=== PATIENT | female | born 1945 | race Caucasian/White ===

== ENCOUNTER 2017-09-10 15:00 | Outpatient (RCR) | payer OTHER, MEDICARE, SELFPAY ==
--- NOTE | 2017-08-23 12:45 | HP.PTEVAL_ITS ---
Patient's Visit Information CONOR LIM is a 72 year old F referred to Physical Therapy by Leo KHAN with a diagnosis of L pes anserine bursitis. Date of Evaluation: 08/23/17 Physical Therapist: JESSICA TineoT, OC - Visit Plan Frequency: 2x /Week Duration: 2-4 Weeks Plan: 2x/week for 2-4 weeks...pt on chemo and has pacemaker. STM/ rollout to L hip adductor/quad and HS and stretch same. Strengthening of L knee and hip NWB. - Subjective Subjective: June, after a trip to the [facility], her L knee got huge and swollen and painful. (Is on chemo pill which makes her sensitive to joint pain). Went to [facility] and got cortisone shot and was much better. Then was fine until this past Saturday doctor appointment as she woke up in the middle of night and it was getting worse again. Pain is medial L joint line. Was tender up the adductor also. Was put on prednisone. Legs have always been good and able to walk long way all her life and up to a mile and a half a year ago. Improving on prednisone. Is on chemo pill after lumpectomy. CA supposedly gone. Sleep is OK now but was keeping her up earlier in the week. Not employed. Does most activties but they hurt. WB is worse. Lifting leg over tub is worse. Many steps at home and they are not a problem but were tough when the pain is there. - Pain L medial Pain Intensity (Out of 10): 0 Pain Intensity Range: 0, 9 Comment: pushing on knee distal to medial joint - Objective Walks well today adn transfers without pain. Adductors adn HS mod tight B. Knee aROM WFL and symmetrical without pain B. strength in hips 3+, knees 4- ext adn flexion without pain today., ankles 4/5. refelxes 2/3 patella and achilles. sensation LE WNL to gross light touch. - knee scour. - patellar grind. -bounce home. - varus and valgus. Tender over Pes on L knee moderately. - Goals Goal 1:: L knee pain gone for 2 weeks Goal Time Frame: 2-4 Weeks Goal 2:: I approp HEP to minimize likelihood of future problems Goal Time Frame: 2-4 Weeks Goal 3:: Pt feel 99% improved and back to normal activities. Goal Time Frame: 2-4 Weeks - Rehabilitation Potential Physical Therapy Diagnosis: L pes anserine bursitis. Rehabilitation Potential: Fair - Anticipated Interventions Patient/Client Instruction: Educate patient on: Condition For the Purpose of:: To decrease pain, To improve nutrient delivery to tissue, To improve ability of physical actions for home/community/work/leisure Therapeutic Exercise to Include: Strength training, Flexibilty training For the Purpose of:: To decrease pain, To improve nutrient delivery to tissue Manual Therapy Techniques to Include: Soft tissue mobilization For the Purpose of:: To decrease pain, To improve muscle performance and motor function Cryotherapy (ice pack, ice massage): Yes For the Purpose of:: To decrease pain Thank you for the opportunity to evaluate your patient. For Medicare and Medicare HMO plans, please review the plan of care and approve it. It will need to be FAXED BACK to us at [phone] for Medicare purposes. Please let me know if there are questions or concerns regarding this plan of care. Physician Signature: Date:
--- NOTE | 2017-11-28 16:14 | HP.PT.NRP ---
HP - Discharge Summary (1) - Patient Information CONOR LIM was seen in my office for initial evaluation on 08/23/17. The following Plan of Care was established for this patient: Initial Frequency: 2x /Week Initial Duration: 2-4 Weeks - Anticipated Interventions Patient/Client Instruction: Educate patient on: Condition For the Purpose of:: To decrease pain, To improve nutrient delivery to tissue, To improve ability of physical actions for home/community/work/leisure Therapeutic Exercise to Include: Strength training, Flexibilty training For the Purpose of:: To decrease pain, To improve nutrient delivery to tissue Manual Therapy Techniques to Include: Soft tissue mobilization For the Purpose of:: To decrease pain, To improve muscle performance and motor function Cryotherapy (ice pack, ice massage): Yes For the Purpose of:: To decrease pain This patient was last seen in our office 09/10/17. Pertinent comments regarding their Physical therapy will appear below: Pt seen 4 visits of plan of care and cancelled the rest as she was having US of gall bladder. At this point, it has been over two months and I will discontinue due to nonattendance. At this point I will be discontinuing this patient from physical therapy. I would be happy to see this patient again in the future if found appropriate by the physician. Thank you! Reuben Giles, DPT, OC
== END 2017-09-10 19:00 | disposition home or self-care (01) ==
LOC: PT 15:00
PROVIDERS: Family Provider Family Medicine; PCP Family Medicine; Visit Provider Family Medicine
DX: M75.02 Adhesive capsulitis of left shoulder (principal)
CPT/HCPCS: 97110; 97162

== ENCOUNTER → 2017-09-12 12:00 | Outpatient (CLI) | payer OTHER, MEDICARE, SELFPAY ==
[2017-09-12 12:42] LABS: Absolute Lymphocyte Count 2.45 X10^3/ul (0.83-4.51); Absolute Neutrophil Count 5.2 X10^3/uL (2.0-7.7); Basophil# 0.02 X10^3/uL; Basophil% 0.2 % (0-1); Eosinophil# 0.15 X10^3/uL; Eosinophils% 1.7 % (0-5); Hematocrit 38.1 % (37-47); Hemoglobin 12.1 g/dl (12.0-15.0); Lymphocyte # 2.45 X10^3/ul (4.0); Lymphocyte % 28.5 % (19-41); Mean Corp Hgb Conc 31.8 g/gl (32-36); Mean Corpuscular Volume 91.4 fL (81-99); Mean Platelet Vol. 9.4 fl (6.2-12.0); Monocyte# 0.76 X10^3/uL; Monocyte% 8.8 % (0-10); Neutrophil % 60.5 % (47-70); Platelet Count 294 K/mm3 (150-450); RBC Distribution Width CV 14.7 % (11.6-14.6); RBC Distribution Width SD 48.9 fl (35.1-43.9); Red Blood Count 4.17 M/mm3 (4.2-5.4); White Blood Count 8.6 K/mm3 (4.4-11.0)
[2017-09-12 12:44] LABS: POSITIVE COUNT NO; POSITIVE DIFFERENTIAL NO; POSITIVE MORPHOLOGY NO
--- NOTE | 2017-09-12 12:59 | US_ITS ---
STUDY: ABDOMINAL ULTRASOUND - RIGHT UPPER QUADRANT REASON FOR VISIT: Female, 72 years old. Right upper quadrant pain. TECHNIQUE: Ultrasound evaluation of the right upper quadrant was performed with real-time and static de leon-scale imaging. TECHNICAL QUALITY: Adequate. COMPARISON: None. FINDINGS: Liver: The liver measures 16.0 cm. There is increased echogenicity consistent with fatty infiltration. The bile ducts are within normal limits. There is hepatic color flow. The direction of portal flow is hepatopetal. There is no demonstrated mass lesion. Gallbladder: Normal distended gallbladder. The gallbladder wall is slightly thickened and measures 3.2 mm. There is a negative sonographic Roberts's sign. There is no pericholecystic fluid. There are multiple echogenic structures within the gallbladder, consistent with multiple gallstones. Common Bile Duct (C.B.D.): The common bile duct measures 6.3 mm. Pancreas: Normal size of the head, body and tail of the pancreas. There is normal echogenicity of the pancreas. There is no demonstrated pancreatic mass or cyst. Right Kidney: Normal size of the right kidney. The right kidney measures 11.1 cm x 5.0 cm x 4.5 cm. Normal renal cortex. The right cortex measures 1.4 cm. There is no demonstrated renal mass or cyst. Fullness of the right renal pelvis. US/Gallbladder IMPRESSION: Multiple gallstones. Mild gallbladder wall thickening. Electronically Signed: Jimy Mueller MD at 13:44 EST Tel [phone], Service support ,
[2017-09-12 13:13] LABS: ALB/GLOB Ratio 1.1 RATIO (0.9-2.4); AST(SGOT) 11 U/L (15-37); Alanine Aminotransfer ALT/SGPT 27 U/L (13-56); Albumin, Serum 3.9 g/dL (3.2-5.0); Alkaline Phosphatase 81 U/L (45-117); Anion Gap 10 (5-15); BUN 12 mg/dL (7-18); BUN/Creat Ratio 16.4 RATIO (10-20); Calcium,Total 9.3 mg/dL (8.5-10.1); Chloride 105 mmol/L (98-107); Creatinine, Serum 0.73 mg/dL (0.55-1.02); EST Glomerular Filtration Rate 83 mL/min (>60); Est Glom Filt Rate - Afr Amer 100 mL/min (>60); Globulin 3.5 g/dL (2.2-4.2); Glucose 72 mg/dL (74-106); Lipase 119 U/L (73-393); Potassium 4.1 mmol/L (3.5-5.1); Protein, Total 7.4 g/dL (6.4-8.2); Sodium Level 142 mmol/L (136-145)
== END ==
PROVIDERS: Family Provider Family Medicine; PCP Family Medicine; Visit Provider Family Medicine
DX: R10.11 Right upper quadrant pain (principal)
CPT/HCPCS: 36415; 76705; 80053; 83690; 85025

== ENCOUNTER 2018-02-20 15:30 | Outpatient (RCR) | payer OTHER, MEDICARE, SELFPAY ==
--- NOTE | 2018-01-21 15:59 | HP.PTEVAL_ITS ---
Patient's Visit Information CONOR LIM is a 72 year old F referred to Physical Therapy by Shen Henriquez with a diagnosis of debility. Date of Evaluation: 01/21/18 Physical Therapist: Elsie Darling - Visit Plan Frequency: 2x /Week Duration: 4 Weeks Plan: 2X/ week for 4-6 weeks to increase general mobility, core strength, LE Strength, UE strength, neck stretches - Subjective Subjective: Pt is on a med that takes all the estrogen out of her system due to breast CA. Had a lumpectomy twice. She has been on it a little over a year and all her joints hurt and all her hair is falling out. She has to physically lift her leg to get out of a car. She has to be on this for 4 more years. She hurts all the time and has to push self to do anything. 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 She reports that she is overweight and more overweight she moved to [place]..... She feels that some of her knee pain is tendon pain and then she got some serious side pain and had to stop. Walking is not too bad.... 2 years ago walk 1.5 miles in 36 min. all the sudden she can't do that...... she feels she needs to move her joints... 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 She is having trouble with pain with sit to stand but no physical trouble doing it. Her hands tingle, Her neck is stiff, her RC is painful ( she has learned to adjust her mobility). She swells from her meds.... No trouble with stairs except for some SOB. - Pain knee pain Pain Intensity (Out of 10): 6 B RC's Pain Intensity (Out of 10): 0 - Objective Gait: walks fast pace without difficulty. able to heel and toe walk without much difficulty. LE MMT:hip flex R 3-/5 and L 3+/5, knee flex and knee ext B 4/ 5, B hip abd 4-/5, able to bridge without difficulty. UE MMT: B ER/ IR 4/5, flexion 4/5 B and abd B 4/5. Neck AROM: Rot B 75%, flexion 100%, ext 50%. Trunk AROM: flexion 50%, ext 75%. Sit to stand without UE assistance....she can swuat down without pain - Goals Goal 1:: I HEP Goal Time Frame: 4-6 Weeks Goal 2:: Increase LE strength by 1/2 muscle grade (At time of eval....LE MMT: hip flex R 3-/5 and L 3+/5, knee flex and knee ext B 4/5, B hip abd 4-/5, able to bridge without difficulty). Goal Time Frame: 4-6 Weeks Goal 3:: Decrease overall joint pain by 50% Goal Time Frame: 4-6 Weeks - Rehabilitation Potential Rehabilitation Potential: Good - Anticipated Interventions Thank you for the opportunity to evaluate your patient. For Medicare and Medicare HMO plans, please review the plan of care and approve it. It will need to be FAXED BACK to us at [phone] for Medicare purposes. Please let me know if there are questions or concerns regarding this plan of care. Physician Signature: Date:
--- NOTE | 2018-04-11 10:16 | HP.PT.NRP ---
HP - Discharge Summary (1) - Patient Information CONOR LIM was seen in my office for initial evaluation on 01/21/18. The following Plan of Care was established for this patient: Initial Frequency: 2x /Week Initial Duration: 4 Weeks This patient was last seen in our office 02/20/18. Pertinent comments regarding their Physical therapy will appear below: DC PT At this point I will be discontinuing this patient from physical therapy. I would be happy to see this patient again in the future if found appropriate by the physician. Thank you! Elsie Darling
== END 2018-02-20 19:00 | disposition home or self-care (01) ==
LOC: PT 15:30
PROVIDERS: Family Provider Family Medicine; PCP Family Medicine; Visit Provider Family Medicine
DX: R53.81 Other malaise (principal)
CPT/HCPCS: 97110; 97162

== ENCOUNTER 2018-03-20 13:57 | Outpatient (RCR) | payer OTHER, MEDICARE, SELFPAY ==
[2018-03-20 15:36] LABS: Prothrombin Time Fingerstick 28.7 SEC (11.9-14.4)
== END 2018-03-20 15:00 | disposition home or self-care (01) ==
LOC: LAB 13:57
PROVIDERS: Family Provider Family Medicine; PCP Family Medicine; Visit Provider Internal Medicine Cardiovascular Disease
DX: I48.1 Persistent atrial fibrillation (principal); Z79.01 Long term (current) use of anticoagulants
CPT/HCPCS: 36416; 85610

== ENCOUNTER 2018-04-25 08:02 | Outpatient (RCR) | payer OTHER, MEDICARE, SELFPAY ==
[2018-04-25 08:21] LABS: Prothrombin Time Fingerstick 28.8 SEC (11.9-14.4)
== END 2018-04-25 09:00 | disposition home or self-care (01) ==
LOC: LAB 08:02
PROVIDERS: Family Provider Family Medicine; PCP Family Medicine; Visit Provider Internal Medicine Cardiovascular Disease
DX: I48.1 Persistent atrial fibrillation (principal); Z79.01 Long term (current) use of anticoagulants
CPT/HCPCS: 36416; 85610

== ENCOUNTER → 2018-10-01 10:08 | Outpatient (CLI) | payer OTHER, MEDICARE, SELFPAY ==
[2018-03-20 14:43] VITALS: BMI 33.6
[2018-10-01 12:47] LABS: International Normalized Ratio 2.6; Prothrombin Time (Protime)PT. 28.3 SECONDS (11.7-14.9)
[2018-10-01 13:01] LABS: Microalbumin,Random Urine 8.5 mg/L (NO RANGE EST.); Microalbumin:Creatinine Ratio 11.9 mg/g CRE (<30 mg/g CRE)
[2018-10-01 13:07] LABS: AST(SGOT) 14 U/L (15-37); Alanine Aminotransfer ALT/SGPT 29 U/L (13-56); Albumin, Serum 3.8 g/dL (3.2-5.0); Alkaline Phosphatase 98 U/L (45-117); Anion Gap 12 (5-15); BUN 14 mg/dL (7-18); BUN/Creat Ratio 19.8 RATIO (10-20); Calcium,Total 9.1 mg/dL (8.5-10.1); Chloride 105 mmol/L (98-107); Cholesterol 153 mg/dL (200); Creatinine, Serum 0.71 mg/dL (0.55-1.02); EST Glomerular Filtration Rate 86 mL/min (>60); Est Glom Filt Rate - Afr Amer 103 mL/min (>60); Free T3 2.9 pg/mL (2.18-3.98); Globulin 3.6 g/dL (2.2-4.2); Glucose 95 mg/dL (74-106); Hemoglobin A1c 6.5 % (4.2-6.3); High Density Lipoprotein 34 mg/dL; Protein, Total 7.4 g/dL (6.4-8.2); Sodium Level 142 mmol/L (136-145); T4 Total, Thyroxin 8.2 ug/dL (4.8-13.9); Thyroid Stim Hormone (TSH) 3.31 uIU/mL (0.358-3.74); Triglycerides 187 mg/dL; Very Low Density Lipoprotein 37 mg/dL (5-40)
== END ==
PROVIDERS: Internal Medicine Cardiovascular Disease; Family Provider Family Medicine; PCP Family Medicine; Referring Provider Family Medicine; Visit Provider Family Medicine
DX: E11.9 Type 2 diabetes mellitus without complications (principal); E03.9 Hypothyroidism, unspecified; E55.9 Vitamin D deficiency, unspecified
CPT/HCPCS: 36415; 80048; 80061; 80076; 82043; 82306; 82570; 83036; 84436; 84443; 84481; 85610

== ENCOUNTER 2018-11-13 12:20 | Outpatient (RCR) | payer OTHER, MEDICARE, SELFPAY ==
[2018-11-13 12:41] LABS: Prothrombin Time Fingerstick 33.4 SEC (11.9-14.4)
== END 2018-12-02 16:00 | disposition home or self-care (01) ==
LOC: LAB 12:20
PROVIDERS: Family Provider Family Medicine; PCP Family Medicine; Referring Provider Internal Medicine Cardiovascular Disease; Visit Provider Internal Medicine Cardiovascular Disease
DX: I48.1 Persistent atrial fibrillation (principal); Z79.01 Long term (current) use of anticoagulants
CPT/HCPCS: 36416; 85610

== ENCOUNTER → 2018-11-13 | Outpatient (CLI) | payer OTHER, MEDICARE, SELFPAY ==
[2018-03-20 14:43] VITALS: BMI 33.6
--- NOTE | 2018-11-13 12:50 | BD_ITS ---
STUDY: DUAL ENERGY X-RAY ABSORPTIOMETRY / DXA REASON FOR EXAM: Female, 73 years old. The patient is postmenopausal. Loss of height. TECHNIQUE: Bone Mineral Density (BMD) measurements of lumbar spine and bilateral hips were obtained. COMPARISON: None. FINDINGS: Lumbar Spine (L1-L4): g/cm2 (0.849) / T-score (-2.7) / Z-score (-0.9) Findings are suggestive of osteoporosis with a high fracture risk. Left Femur Total: g/cm2 (0.896) / T-score (-0.9) / Z-score (0.9) Left Femoral Neck: g/cm2 (0.853) / T-score (-1.3) / Z-score (0.6) Right Femur Total: g/cm2 (0.855) / T-score (-1.2) / Z-score (0.5) Right Femoral Neck: g/cm2 (0.858) / T-score (-1.3) / Z-score (0.6) BD/Dexa Bone Density Study IMPRESSION: The patient is considered osteoporotic as outlined below according to World Alan Organization (WHO) criteria with a high fracture risk. Reference Information: The T-score is the number of standard deviations above or below the standard which is normal for young adults at their peak bone mineral density. The World Health Organization (WHO) interprets the T-scores as follows: Above -1 Normal bone density Between -1 and -2.5 Osteopenia Equal to / or below -2.5 Osteoporosis As a practical clinical guideline, osteopenia may be graded as follows: Mild -1 through -1.5 Moderate -1.6 through -2.0 Severe -2.1 through -2.4 The Z-score is the number of standard deviations above or below age-matched controls. A Z-score of less than -1.5 would be considered abnormal. References: 1. NIH Osteoporosis and Related Bone Diseases http://www.osteo.org 2. International Society for Clinical Densitometry http://www.iscd.org 3. National Osteoporosis Foundation http://www.nof.org Electronically Signed: Jimy Mueller, at 8:56 EDT , Service support ,
== END | disposition home or self-care (01) ==
LOC: OPBD 12:37
PROVIDERS: Family Provider Family Medicine; PCP Family Medicine; Referring Provider Family Medicine; Visit Provider Family Medicine
DX: Z78.0 Asymptomatic menopausal state (principal)
CPT/HCPCS: 77080

== ENCOUNTER 2018-12-03 10:00 | Outpatient (RCR) | payer OTHER, MEDICARE, SELFPAY ==
--- NOTE | 2018-10-27 14:34 | HP.PTEVAL_ITS ---
Patient's Visit Information CONOR LIM is a 73 year old F referred to Physical Therapy by Shen Henriquez MD with a diagnosis of Bilateral Knee Pain. Date of Evaluation: 10/27/18 Physical Therapist: Lakisha Schmitt DPT - Visit Plan Frequency: 2x /Week Duration: 4 Weeks Plan: Focus on LE and core s/s with functional mobility. - Subjective Findings: Patient reports that both her knees bother her when she goes from si tting to standing. She feels that she has allowed herself to get old. She is on a lot of medications that cause swelling of the lower extremeties. She is very sedentary. She does not drive so transportation is her biggest limiting factor to PT. She finds herself lifting her legs with her pant legs. Feels her main problems is stiffness. Both legs are equal. They did x-rays on her knees about 2 years ago and gave her a cortisone injection. They found it was more fluid issues- they did not drain the fluid. She felt cortisone injections helps a lot. Patient feels the pain in the medial joint line around the medial patella. Pain radiates all over her body. Was unable to give numbers of pain scale due to just dealing with it. Aggravated by weather and sitting to long. Does stairs a lot in her home- has a HR on them. Does have N/T in her toes but that has not changed. PMHx/Meds: no change since last time she was at the hospital. Pacemaker. - Objective Posture: FH, RS, increased kyphosis- can correct with verbal cues but does not maintain. Gait: no deviation noted. Stairs: asc/desc 8 recip with 2 HR- uses UE for balance on asc and desc- uses HR for controlled descent. HR/TR: able with UE A for balance. SLS: left: 9 seconds right: 3 seconds then LOB and requires UE for righting. Palpation: tender along medial and lateral joint lines. Sit to Stand: bilateral UE and pauses before she starts ambulation. ROM: WFL in all planes. Strength: Ankle: 5/5, Knee: 4+/5, Hip: 4-/5 throughout Core: fair minus - Goals Goal 1:: Patient will be I with HEP and progression Goal Time Frame: 4-6 Weeks Goal 2:: Patient will maintain proper posture t/o tx session to demo increased core s/s Goal Time Frame: 4-6 Weeks Goal 3:: Patient will demo 5/5 strength in bilateral LE Goal Time Frame: 4-6 Weeks Goal 4:: Patient will perform 10 sit to stands no arms with no increased pain Goal Time Frame: 4-6 Weeks - Rehabilitation Potential Physical Therapy Diagnosis: Patient presents with hypomobility- she has decreased strength, flex and muscular endurance leading to poor posture and increased pain with ADL's. - Anticipated Interventions Patient/Client Instruction: Educate patient on: Benefits of Fitness Program Therapeutic Exercise to Include: Strength training, Endurance training, Balance training, Body mechanics, Postural training, Flexibilty training, Gait and locomotor training, Passive ROM, Active ROM, Dynamic Lumbar Stabilization For the Purpose of:: To improve muscle performance and motor function TENS: Yes Cryotherapy (ice pack, ice massage): Yes Thermo therapy (hot pack): Yes Ultrasound (thermal/non thermal): No For the Purpose of:: To decrease pain Thank you for the opportunity to evaluate your patient. For Medicare and Medicare HMO plans, please review the plan of care and approve it. It will need to be FAXED BACK to us at [phone] for Medicare purposes. For Medicare only, by signing this I certify the plan of care. Please let me know if there are questions or concerns regarding this plan of care. Physician Signature: Date:
--- NOTE | 2018-10-27 16:18 | HP.OTEVAL ---
Patient's Visit Information KERA LIM is a 73 year old F, referred to Occupational Therapy by Shen Henriquez MD, with a diagnosis of Trigger finger of R RF and PF and L RF. Date of Evaluation: 10/27/18 Occupational Therapist: Carmen Yun - Subjective Subjective: Arrived and noted that R RF and PF and well as L RF have been triggering for about three months. She is currently on chemo related pill due to breast cancer. 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 She noted increased symptoms of numbness and tingling occurring t/o the day that results in dropping of tasks. - ADLs Dressing: Pants, Socks, Shoes Eating: Use silverware, Cut food Grooming: touch up painter hand, Curling iron Kitchen: Chop with knife, Peel fruits & vegetables, Open jars, Open bottle caps, Pour from pitcher, Lift saucepan, Load/unload homeopathic doctor Household: Vacuum Miscellaneous: Use cell phone, Hold change, Take things out of wallet, Open envelope, Carry shopping bag, Write, Shuffle cards, Do crafts, Sew, Katya/knit/needlework - Pain Bilateral Hand 8 Pain Intensity Range: 0, 8 - ROM MP: RF R 0-63, L 0-71: PF R 0-83, L WFL - Strength Layboy Tender: R 30, L 26 Lateral Pinch: R 12, L 14 Tripod Pinch: R 10, L 10 Tip-to-Tip Pinch: R 6, L 8 - Sensation Thumb: R 2.83, L 3.22 Index: R 2.83, L 3.22 Middle: R 3.61, L 2. 83 Ring: R 2.83, L 2. 83 Little: R 2.83, L 2. 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 Goal:: Kera to increase finger dexterity tasks with B hands as exhibited through decreased time on 9 hole pegboard test to promote increased function by d/c. Goal:: Kera to be (i) to complete proper wrist mechanics to promote increased joint integrity and decreased pain in R wrist by d/c. Goal:: Kera to return to all ADL/IADLs with no more than 1/10 pain with repetitive movements 4/5 trials 80% of the time by d/c. Goal:: Kera to be mod i to complete daily HEP to promote strengthening of B hand and manage symptoms 4/5 trials 80% of the time by d/c. Goal:: Kera to complete use of wrist cock up and trigger fonmgers splint as instructed to promote increased ROM and decreased symptoms 4/5 trials 80% of the time by d/c. - Rehabilitation General Assessment: Kera completed Ot evaluation on this date of 10/27/18. She exhibits increased pain and decreased ROM of R RF and PF. Increased tenderness with palpation of A1 chilango of right RF and PF and L RF. She reports increased trigger of R RF and PF in morning as well as increased symptoms of carpal tunnel. She exhibits positive Phalen?s test and further custom wrist cock up made in which she will be on completing splinting schedule to promote adjusting and increasing tolerance for splint for night time use. Skilled OT required to promote wrist alignment to decreased numbness and tingling symptoms, promote decreased inflammation at the A1 chilango for her R RF and PF as well as L RF, and general strengthening and ROM needed to promote to PLOF and return to al ADL/IADLs including craft and sewing related tasks by d/c. Rehabilitation Potential: Good - Anticipated Interventions Anticipated Interventions: A/AAROM/PROM, Strengthening, Triggerpoint Release, Modalities, Orthoses, Joint Protection/Energy Conservation, Ergonomic Education, Dynamic Sitting Balance, Fine Motor Coord/Bryson, Neuro Reeducation, ADL Training, Caregiver Training, Home Program - Visit Plan Frequency: 2x /Week Duration: 4 Weeks General Plan: OT to address symptoms of numbness and tingling from CTS and trigger finger with conservative management, strengthening, orthotic management, and pain management through modalities to promote returning to PLOF for ADL/IADLS. TEXT: Thank you for the opportunity to evaluate your patient. For Medicare and Medicare HMO plans, please review the plan of care and approve it. It will need to be FAXED BACK to us at [phone] for Medicare purposes. Please let me know if there are questions or concerns regarding this plan of care. Physician Signature: Date:
--- NOTE | 2018-12-03 10:04 | HP.OTDCSUM_ITS ---
HP - OT D/C Summary It has been my pleasure to treat CONOR LIM under orders from Shen Henriquez MD, for the diagnosis of Trigger finger of R RF and PF and L RF for a total of 8 visit(s). Please see the following information for a summary of their discharge status. - Overall Improvement % Improvement: 20 - Objective Objective/Function: Completed reassessment on this date of December 03, 2018. Results are as follows: ROM. MCP. - RF R -7-0-65, L -5-0-69. PIP. - RF R 0-90, L 0- 104. DIP. - RF R 0-31, l 0-40. Strength: Elementary Reading Tutor R 40, L 36. Lateral R 14, L 14. Three jaw R 12, L 11. Pincer R 13, L 12. Sensation. R 2nd 2.44, 3rd 2.44, 4th 2.44, 5th 2.44, thumb 3.22. L 2nd 2.83, 3rd 2.44, 4th 2.44, 5th 2.44, thumb 2.44. 9 hole pegboard test: R 21.15 s. L 22.08 s. Increased in all measurements. R RF continues to trigger during times without brace. 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 - GOAL MEANT Goal:: Conro to increase finger dexterity tasks with B hands as exhibited through decreased time on 9 hole pegboard test to promote increased function by d/c. Goal:: Conor to be (i) to complete proper wrist mechanics to promote increased joint integrity and decreased pain in R wrist by d/c. Goal:: Conor to return to all ADL/IADLs with no more than 1/10 pain with repetitive movements 4/5 trials 80% of the time by d/c. Goal:: Conor to be mod i to complete daily HEP to promote strengthening of B hand and manage symptoms 4/5 trials 80% of the time by d/c. Goal:: Conor to complete use of wrist cock up and trigger fonmgers splint as instructed to promote increased ROM and decreased symptoms 4/5 trials 80% of the time by d/c. - Plan Plan: Conor will be d/c'd today and she is to return to doctor as she has progressed but continues to experience triggering of R RF with conservative management. She is to call with questions or concerns at this time and continue with use of trigger finger splint and CTS wrist cock up splint for CTS on R hand as needed. - D/C Information If there are questions or concerns regarding this patient's occupational therapy, please fell free to call me at [phone]. Thank you for the referral of this patient. Sincerely, Carmen Yun
--- NOTE | 2018-12-03 10:16 | HP.PTDCSUM ---
HP - PT D/C Summary It has been my pleasure to treat CONOR LIM under orders from Shen Henriquez MD, for the diagnosis of Bilateral Knee Pain for a total of 9 visit(s). Discharge Date: Please see the following information for a summary of their discharge status. - Subjective Subjective: Is having a Moh's procedure on her face on December 19 for a skin cancer. Her knees are better- and is she is able to get up out of a chair without the use of her hands. She can get in/out of the car much easier now. When the weather is warm she is much happier. She is on a chemo pill which makes her have joint pain. Plans to get a slim cycle and leg press - Overall Improvement % Improvement: 75 - Objective Objective/Function: Posture: FH, RS, increased kyphosis- can correct with verbal cues and maintain in hard back chair. Gait: no deviation noted with increased gait speed. Stairs: asc/desc 8 recip with 1 HR. HR/TR: able with UE A for balance. SLS: left: 15 seconds right: 10 seconds then LOB and requires UE for righting. Palpation: not tender. Sit to Stand: x10 no UE A. squatting: good control and ROM ROM: WFL in all planes. Strength: Ankle: 5/5, Knee: 5/5, Hip: 4+/5 throughout Core: fair - Goals Goal 1:: Patient will be I with HEP and progression Goal Progress: Goal Met Goal 2:: Patient will maintain proper posture t/o tx session to demo increased core s/s Goal Progress: Goal Met Goal 3:: Patient will demo 5/5 strength in bilateral LE Goal Progress: Progressing Goal 4:: Patient will perform 10 sit to stands no arms with no increased pain Goal Progress: Goal Met - Plan Plan: Discharge to I HEP - D/C Information If there are questions or concerns regarding this patient's physical therapy, please feel free to call me at [phone]. Thank you for the referral of this patient. Sincerely, Lakisha Schmitt DPT
== END 2018-12-03 19:00 | disposition home or self-care (01) ==
LOC: PT 10:00
PROVIDERS: Family Provider Family Medicine; PCP Family Medicine; Referring Provider Family Medicine; Visit Provider Family Medicine
DX: M65.341 Trigger finger, right ring finger (principal); M65.351 Trigger finger, right little finger; M65.322 Trigger finger, left index finger; M25.561 Pain in right knee; M25.562 Pain in left knee
CPT/HCPCS: 97035; 97110; 97161; 97164; 97166; 97168; 97530; 97760

== ENCOUNTER 2019-03-14 10:48 | Outpatient (RCR) | payer OTHER, MEDICARE, SELFPAY ==
[2018-03-20 14:43] VITALS: BMI 33.6
[2018-12-18 13:48] VITALS: BMI 34.0
[2019-03-14 13:15] LABS: Prothrombin Time Fingerstick 28.6 SEC (11.9-14.4)
== END 2019-03-14 12:00 | disposition home or self-care (01) ==
LOC: LAB 10:48
PROVIDERS: Family Provider Family Medicine; PCP Family Medicine; Referring Provider Internal Medicine Cardiovascular Disease; Visit Provider Internal Medicine Cardiovascular Disease
DX: I48.1 Persistent atrial fibrillation (principal); Z79.01 Long term (current) use of anticoagulants
CPT/HCPCS: 36416; 85610

== ENCOUNTER → 2019-03-25 | Outpatient (CLI) | payer OTHER, MEDICARE, SELFPAY ==
[2018-12-18 13:48] VITALS: BMI 34.0
[2019-03-25 10:28] LABS: Hemoglobin A1c 6.5 % (4.2-6.3)
[2019-03-25 10:39] LABS: Anion Gap 7 (5-15); BUN 12 mg/dL (7-18); BUN/Creat Ratio 16.8 RATIO (10-20); Calcium,Total 8.8 mg/dL (8.5-10.1); Chloride 106 mmol/L (98-107); Cholesterol 142 mg/dL (200); Creatinine, Serum 0.71 mg/dL (0.55-1.02); EST Glomerular Filtration Rate 85 mL/min (>60); Est Glom Filt Rate - Afr Amer 103 mL/min (>60); Glucose 109 mg/dL (74-106); High Density Lipoprotein 43 mg/dL; Potassium 3.9 mmol/L (3.5-5.1); Sodium Level 141 mmol/L (136-145); Thyroid Stim Hormone (TSH) 2.66 uIU/mL (0.358-3.74); Triglycerides 140 mg/dL; Very Low Density Lipoprotein 28 mg/dL (5-40)
== END | disposition home or self-care (01) ==
LOC: MFPLAB 08:11
PROVIDERS: Family Provider Family Medicine; PCP Family Medicine; Referring Provider Family Medicine; Visit Provider Family Medicine
DX: E03.9 Hypothyroidism, unspecified (principal); E11.9 Type 2 diabetes mellitus without complications; I48.91 Unspecified atrial fibrillation
CPT/HCPCS: 36415; 80048; 80061; 83036; 84443

== ENCOUNTER 2019-05-28 14:29 | Outpatient (RCR) | payer OTHER, MEDICARE, SELFPAY ==
[2018-12-18 13:48] VITALS: BMI 34.0
[2019-05-16 11:51] LABS: International Normalized Ratio 1.7; Prothrombin Time (Protime)PT. 19.4 SECONDS (11.7-14.9)
[2019-05-29 07:31] LABS: Prothrombin Time Fingerstick 24.1 SEC (11.9-14.4)
== END 2019-05-28 18:00 | disposition home or self-care (01) ==
LOC: LAB 14:29
PROVIDERS: Family Provider Family Medicine; PCP Family Medicine; Referring Provider Internal Medicine Cardiovascular Disease; Visit Provider Internal Medicine Cardiovascular Disease
DX: I48.19 Other persistent atrial fibrillation (principal); Z79.01 Long term (current) use of anticoagulants
CPT/HCPCS: 36415; 36416; 85610

== ENCOUNTER → 2019-06-17 | Outpatient (CLI) | payer OTHER, MEDICARE, SELFPAY ==
[2018-12-18 13:48] VITALS: BMI 34.0
[2019-06-17 12:35] LABS: Anion Gap 9 (5-15); BUN 16 mg/dL (7-18); BUN/Creat Ratio 22.6 RATIO (10-20); Calcium,Total 9.3 mg/dL (8.5-10.1); Chloride 104 mmol/L (98-107); Cholesterol 141 mg/dL (200); Creatinine, Serum 0.71 mg/dL (0.55-1.02); EST Glomerular Filtration Rate 85 mL/min (>60); Est Glom Filt Rate - Afr Amer 103 mL/min (>60); Glucose 90 mg/dL (74-106); High Density Lipoprotein 43 mg/dL; Sodium Level 140 mmol/L (136-145); Triglycerides 150 mg/dL; Very Low Density Lipoprotein 30 mg/dL (5-40)
== END | disposition home or self-care (01) ==
LOC: MFPLAB 11:18
PROVIDERS: Family Provider Family Medicine; PCP Family Medicine; Referring Provider Family Medicine; Visit Provider Family Medicine
DX: E11.9 Type 2 diabetes mellitus without complications (principal)
CPT/HCPCS: 36415; 80048; 80061

== ENCOUNTER → 2019-09-23 11:22 | Outpatient (CLI) | payer OTHER, MEDICARE, SELFPAY ==
[2018-12-18 13:48] VITALS: BMI 34.0
[2019-09-23 14:42] LABS: Thyroid Stim Hormone (TSH) 2.28 uIU/mL (0.358-3.74)
== END ==
PROVIDERS: PCP Family Medicine; Referring Provider Family Medicine; Visit Provider Nurse Practitioner Adult Health
DX: L65.9 Nonscarring hair loss, unspecified (principal)
CPT/HCPCS: 36415; 84443

== ENCOUNTER → 2019-11-11 | Outpatient (CLI) | payer OTHER, MEDICARE, SELFPAY ==
[2018-12-18 13:48] VITALS: BMI 34.0
== END | disposition home or self-care (01) ==
LOC: LABSPEC 10:32
PROVIDERS: PCP Family Medicine; Referring Provider Family Medicine; Visit Provider Family Medicine
DX: N39.0 Urinary tract infection, site not specified (principal)
CPT/HCPCS: 87077; 87086; 87088; 87186

== ENCOUNTER → 2019-12-21 | Outpatient (CLI) | payer OTHER, MEDICARE, SELFPAY ==
[2018-12-18 13:48] VITALS: BMI 34.0
[2019-12-21 18:28] LABS: Anion Gap 7 (5-15); BUN 17 mg/dL (7-18); BUN/Creat Ratio 21.4 RATIO (10-20); Calcium,Total 9.2 mg/dL (8.5-10.1); Chloride 104 mmol/L (98-107); Cholesterol 163 mg/dL (200); Creatinine, Serum 0.79 mg/dL (0.55-1.02); EST Glomerular Filtration Rate 75 mL/min (>60); Est Glom Filt Rate - Afr Amer 91 mL/min (>60); Glucose 125 mg/dL (74-106); High Density Lipoprotein 39 mg/dL; Potassium 3.6 mmol/L (3.5-5.1); Sodium Level 140 mmol/L (136-145); T4 Total, Thyroxin 8.8 ug/dL (4.8-13.9); Thyroid Stim Hormone (TSH) 2.47 uIU/mL (0.358-3.74); Triglycerides 267 mg/dL; Very Low Density Lipoprotein 53 mg/dL (5-40)
[2019-12-21 19:20] LABS: T3 Total - Triiodothyronine 1.19 ng/mL (0.6-1.81)
== END | disposition home or self-care (01) ==
LOC: MFPLAB 16:01
PROVIDERS: PCP Family Medicine; Visit Provider Family Medicine
DX: E11.9 Type 2 diabetes mellitus without complications (principal); E03.9 Hypothyroidism, unspecified
CPT/HCPCS: 36415; 80048; 80061; 84436; 84443; 84480

== ENCOUNTER 2020-01-30 10:37 | Outpatient (RCR) | payer OTHER, MEDICARE, SELFPAY ==
[2018-12-18 13:48] VITALS: BMI 34.0
[2020-01-30 11:38] LABS: International Normalized Ratio 2.9; Prothrombin Time (Protime)PT. 29.6 SECONDS (11.7-14.9)
== END 2020-01-30 18:00 | disposition home or self-care (01) ==
LOC: LAB 10:37
PROVIDERS: PCP Family Medicine; Referring Provider Internal Medicine Cardiovascular Disease; Visit Provider Internal Medicine Cardiovascular Disease
DX: I48.19 Other persistent atrial fibrillation (principal); Z79.01 Long term (current) use of anticoagulants
CPT/HCPCS: 36415; 85610

== ENCOUNTER → 2020-02-01 | Outpatient (CLI) | payer OTHER, MEDICARE, SELFPAY ==
[2018-12-18 13:48] VITALS: BMI 34.0
[2020-02-01 10:11] LABS: International Normalized Ratio 2.4; Prothrombin Time (Protime)PT. 25.8 SECONDS (11.7-14.9)
== END | disposition home or self-care (01) ==
LOC: MFPLAB 08:06
PROVIDERS: PCP Family Medicine; Visit Provider Internal Medicine Cardiovascular Disease
DX: R30.0 Dysuria (principal); Z79.01 Long term (current) use of anticoagulants
CPT/HCPCS: 36415; 85610; 87086; 87088

== ENCOUNTER 2020-04-16 11:21 | Outpatient (RCR) | payer OTHER, MEDICARE, SELFPAY ==
[2018-12-18 13:48] VITALS: BMI 34.0
[2020-04-16 11:36] LABS: Prothrombin Time Fingerstick 33.5 SEC (11.9-14.4)
== END 2020-04-16 18:00 | disposition home or self-care (01) ==
LOC: LAB 11:21
PROVIDERS: PCP Family Medicine; Referring Provider Internal Medicine Cardiovascular Disease; Visit Provider Internal Medicine Cardiovascular Disease
DX: I48.19 Other persistent atrial fibrillation (principal); Z79.01 Long term (current) use of anticoagulants
CPT/HCPCS: 36416; 85610

== ENCOUNTER → 2020-05-10 | Outpatient (CLI) | payer OTHER, MEDICARE, SELFPAY ==
[2020-04-19 10:00] VITALS: BMI 30.5
--- NOTE | 2020-05-10 11:51 | US_ITS ---
STUDY: RENAL ULTRASOUND - COMPLETE REASON FOR EXAM: Female, 74 years old. UTI TECHNIQUE: Ultrasound evaluation of the kidneys was performed with real-time and static rivas-scale imaging. COMPARISON: None. FINDINGS: RIGHT KIDNEY: Normal location of the right kidney, which is normal in size. The right kidney measures 12.7 cm. There is a normal cortex of the right kidney. The renal cortex measures 1.7 cm. There is no right renal mass or cyst. There are no right renal calculi. There is no right hydronephrosis. DISTAL RIGHT URETER: There is non-visualization of the distal right ureter. There is no demonstrated right ureterovesical junction calculus. There is a visualized right ureteral jet. LEFT KIDNEY: Normal location of the left kidney, which is normal in size. The left kidney measures 12.1 cm. There is a normal cortex of the left kidney. The renal cortex measures 1.6 cm. There is no left renal mass or cyst. There are no left renal calculi. There is no left hydronephrosis. DISTAL LEFT URETER: There is non-visualization of the distal left ureter. There is no demonstrated left ureterovesical junction calculus. There is a visualized left ureteral jet. BLADDER: The distended urinary bladder has a volume of 222 ml. The empty urinary bladder has a volume of ml. There is a normal wall thickness of the distended urinary bladder. There is no demonstrated mass within the urinary bladder. There are no demonstrated bladder calculi. US/Kidney and Bladder IMPRESSION: Normal ultrasound of the kidneys and urinary bladder. Electronically Signed: Feng Winters MD at 12:38 EDT Tel , Service support ,
== END | disposition home or self-care (01) ==
LOC: US 11:48
PROVIDERS: PCP Family Medicine; Referring Provider Urology; Visit Provider Urology
DX: N39.0 Urinary tract infection, site not specified (principal)
CPT/HCPCS: 76770

== ENCOUNTER 2020-05-26 13:13 | Outpatient (RCR) | payer OTHER, MEDICARE, SELFPAY ==
[2020-04-19 10:00] VITALS: BMI 30.5
[2020-05-26 13:25] LABS: Prothrombin Time Fingerstick 38.1 SEC (11.9-14.4)
== END 2020-05-26 18:00 | disposition home or self-care (01) ==
LOC: LAB 13:13
PROVIDERS: PCP Family Medicine; Referring Provider Internal Medicine Cardiovascular Disease; Visit Provider Internal Medicine Cardiovascular Disease
DX: I48.11 Longstanding persistent atrial fibrillation (principal); Z79.01 Long term (current) use of anticoagulants
CPT/HCPCS: 36416; 85610

== ENCOUNTER → 2020-07-18 17:00 | Outpatient (CLI) | payer OTHER, MEDICARE, SELFPAY ==
[2020-04-19 10:00] VITALS: BMI 30.5
[2020-07-18 17:48] LABS: Absolute Lymphocyte Count 3.62 X10^3/uL (0.83-4.51); Absolute Neutrophil Count 8.7 X10^3/uL (2.0-7.7); Basophil# 0.09 X10^3/uL; Basophil% 0.7 % (0-1); Eosinophil# 0.23 X10^3/uL; Eosinophils% 1.7 % (0-5); Hematocrit 38.4 % (37-47); Hemoglobin 12.4 g/dL (12.0-15.0); Lymphocyte # 3.62 X10^3/ul (4.0); Lymphocyte % 26.3 % (19-41); Mean Corp Hgb Conc 32.3 g/dL (32-36); Mean Corpuscular Volume 89.9 fL (81-99); Mean Platelet Vol. 9.8 fl (6.2-12.0); Monocyte# 1.06 X10^3/uL; Monocyte% 7.7 % (0-10); NRBC Flagged by Analyzer 0 % (0-5); Neutrophil # 8.68 X10^3/uL (2.7-7.7); Neutrophil % 62.8 % (47-70); Platelet Count 351 K/mm3 (150-450); RBC Distribution Width CV 13.6 % (11.6-14.6); RBC Distribution Width SD 44.9 fl (35.1-43.9); Red Blood Count 4.27 M/mm3 (4.2-5.4); White Blood Count 13.8 K/mm3 (4.4-11.0)
[2020-07-18 18:24] LABS: ALB/GLOB Ratio 1.1 RATIO (0.9-2.4); AST(SGOT) 17 U/L (15-37); Alanine Aminotransfer ALT/SGPT 26 U/L (13-56); Albumin, Serum 4.1 g/dL (3.2-5.0); Alkaline Phosphatase 77 U/L (45-117); BUN 12 mg/dL (7-18); BUN/Creat Ratio 10.4 RATIO (10-20); Calcium,Total 9.6 mg/dL (8.5-10.1); Creatinine, Serum 1.15 mg/dL (0.55-1.02); EST Glomerular Filtration Rate 49 mL/min (>60); Est Glom Filt Rate - Afr Amer 59 mL/min (>60); Globulin 3.6 g/dL (2.2-4.2); Glucose 76 mg/dL (74-106); Protein, Total 7.7 g/dL (6.4-8.2)
[2020-07-18 18:25] LABS: Anion Gap 8 (5-15); Chloride 103 mmol/L (98-107); Potassium 3.7 mmol/L (3.5-5.1); Sodium Level 139 mmol/L (136-145)
== END ==
PROVIDERS: PCP Family Medicine; Visit Provider Family Medicine
DX: R10.30 Lower abdominal pain, unspecified (principal)
CPT/HCPCS: 36415; 80053; 85025

== ENCOUNTER → 2020-07-26 06:29 | Outpatient (CLI) | payer OTHER, MEDICARE, SELFPAY ==
[2020-04-19 10:00] VITALS: BMI 30.5
--- NOTE | 2020-07-26 06:31 | CT_ITS ---
HISTORY: LT LOW ABD PAIN, PREV UMBILICAL HERNIA REPAIR, [id number], BILAT LUMPECTOMY, PACER, HX-LT BREAST CA WITH SURG ONLY ADDITIONAL HISTORY: None provided. EXAMINATION/TECHNIQUE: CT Abdomen And Pelvis W/ Contrast Injection CONTRAST: 100mL Isovue-300 IV contrast. Enteric contrast was given. A radiation dose optimization technique was used for this scan. Number of images including paperwork: [id number] COMPARISON: Ultrasound 09/12/2017 FINDINGS: LOWER THORAX: No consolidation or pleural effusion. Small hiatal hernia. Mildly enlarged heart. Cardiac device leads partially visible. LIVER: No concerning focal lesion. GALLBLADDER: Faint gallstones noted in the gallbladder, the largest 1.5 cm. BILE DUCTS: No significant biliary dilatation. SPLEEN: Unremarkable. PANCREAS: Mild fatty replacement. ADRENAL GLANDS: Unremarkable. KIDNEYS/URETERS: Unremarkable. BOWEL: No bowel obstruction. No significant bowel wall thickening. No localized inflammation. Colonic diverticulosis. Since APPENDIX: No evidence of appendicitis. FREE FLUID: No significant free fluid. FREE AIR: None. LYMPH NODES: No pathologic appearing adenopathy. PERITONEUM, RETROPERITONEUM AND MESENTERY: Otherwise unremarkable. VASCULATURE: Atherosclerotic calcification. PELVIS: Unremarkable bladder. No pelvic mass. ABDOMINAL WALL: Postoperative changes of ventral hernia repair. OSSEOUS AND SOFT TISSUE STRUCTURES: Compression deformity of L1 with mild to moderate loss of height and some sclerosis. Fracture line partially visible. CT/Abdomen/Pelvis WITH Contrast IMPRESSION: No acute abdominopelvic abnormality. Compression deformity L1 appears to be subacute. Cholelithiasis. Colonic diverticulosis. Individualized dose optimization techniques were used for this CT. at 0712 Reported and signed by: Luba Galindo MD Electronically Signed: Luba Galindo MD at 7:12 EST Tel , Service support ,
== END ==
PROVIDERS: PCP Family Medicine; Referring Provider Family Medicine; Visit Provider Family Medicine
DX: R10.30 Lower abdominal pain, unspecified (principal)
CPT/HCPCS: 74177; Q9967

== ENCOUNTER 2020-07-26 06:52 | Outpatient (RCR) | payer OTHER, MEDICARE, SELFPAY ==
[2020-04-19 10:00] VITALS: BMI 30.5
[2020-07-26 07:05] LABS: Prothrombin Time Fingerstick 37.3 SEC (11.9-14.4)
== END 2020-07-26 18:00 | disposition home or self-care (01) ==
LOC: LAB 06:52
PROVIDERS: PCP Family Medicine; Referring Provider Internal Medicine Cardiovascular Disease; Visit Provider Internal Medicine Cardiovascular Disease
DX: I48.11 Longstanding persistent atrial fibrillation (principal); Z79.01 Long term (current) use of anticoagulants
CPT/HCPCS: 36416; 85610

== ENCOUNTER → 2020-10-06 | Outpatient (CLI) | payer OTHER, MEDICARE, SELFPAY ==
[2020-04-19 10:00] VITALS: BMI 30.5
[2020-10-07 10:05] LABS: Probe Check PASS; Specimen Processing Control PASS
== END | disposition home or self-care (01) ==
LOC: LABSPEC 15:20
PROVIDERS: PCP Family Medicine; Referring Provider Family Medicine; Visit Provider Family Medicine
DX: Z20.822 Contact with and (suspected) exposure to COVID-19 (principal)
CPT/HCPCS: 87635; U0002; U0003

== ENCOUNTER → 2020-10-14 10:53 | Outpatient (CLI) | payer OTHER, MEDICARE, SELFPAY ==
[2020-04-19 10:00] VITALS: BMI 30.5
--- NOTE | 2020-10-14 10:57 | RAD_ITS ---
STUDY: X-RAY - LEFT KNEE REASON FOR EXAM: Female, 75 years old. KNEE PAIN TECHNIQUE: 4 view(s) of the knee. COMPARISON: None. FINDINGS: Normal visualized distal femur. Normal visualized proximal tibia and fibula. Normal proximal tibiofibular articulation. There is no demonstrated fracture. Normal medial femorotibial compartment. Normal lateral femorotibial compartment. Normal patellofemoral articulation. There is no demonstrated joint effusion. The soft tissue structures are unremarkable. RAD/Knee 4 or More Views IMPRESSION: Normal x-ray examination of the knee. Electronically Signed: Everton Killian MD at 20:21 EST , Service support ,
== END ==
PROVIDERS: PCP Family Medicine; Referring Provider Family Medicine; Visit Provider Family Medicine
DX: M25.562 Pain in left knee (principal)
CPT/HCPCS: 73564

== ENCOUNTER 2020-11-30 09:30 | Outpatient (RCR) | payer OTHER, MEDICARE, SELFPAY ==
[2020-04-19 10:00] VITALS: BMI 30.5
--- NOTE | 2020-10-25 10:27 | HP.PTEVAL ---
Patient's Visit Information CONOR LIM is a 75 year old F referred to Physical Therapy by Dr. Shen Henriquez MD with a diagnosis of L knee pain. Date of Evaluation: 10/25/20 Physical Therapist: Gene Saunders, PT, ATC - Visit Plan Frequency: 2-3x /Week Duration: 4-6 Weeks Plan: L LE stretching and strengthening, balance and proprio, core strengthening, bike, and HEP. Vaso and CP for pain and swelling - Subjective Pt reports her L knee has been sore for approximately 7 weeks. Pt reports she had her COVID injections around that time and notes her pain began and has progressively worsened. Pt reports her pain has become so bad that she now has transfers with sit to stand, getting in or out of a car, as well as negotiating stairs. Pt notes she lives in a 3 story house. Pt reports she is still very active, but is limited from what she normally does on a daily basis. Pt reports she has had xrays but was told she has no OA. No tingling or numbness in L LE at this time. Pt reports she has sleep difficulty at this time secondary to pain. Pt reports she is on a chemo drug for breast cancer and will be for the next 1.5 years. Pt reports that med has a side effect of joint pain. L knee pain is 7/10 at rest, 10/10 at worst - Pain L knee pain Pain Intensity (Out of 10): 7 Pain Intensity Range: 10 - Objective Neuro: B LE sensation is WNL to light touch. B patellar reflex unable to test. ROM: R knee 0-5-120; L knee 0-15-80. MMT: R knee 4+/5 throughout. L knee 4-/5 and painful. Girth at joint line: R knee 41 cm, L knee 44 cm. Gait: Pt is able to ambulate 120 feet with slow cadance and limp of L LE from the waiting room to the eval room - Goals Goal 1:: Decrease L knee pain x 50% to aid with sleep Goal Time Frame: 4-6 Weeks Goal 2:: Increase L knee ROM x 30 degrees to aid with restoring a more normalized gait pattern Goal Time Frame: 4-6 Weeks Goal 3:: Increase L knee strength x 1 grade to aid with car transfers and stair negotation Goal Time Frame: 4-6 Weeks Goal 4:: I with HEP Goal Time Frame: 4-6 Weeks - Rehabilitation Potential Physical Therapy Diagnosis: L knee pain, weakness, adn limited ROM secondary to degenerative changes in the L knee Rehabilitation Potential: Good - Anticipated Interventions Patient/Client Instruction: Educate patient on: Condition, Plan of Care For the Purpose of:: To improve self management Therapeutic Exercise to Include: Strength training, Endurance training, Balance training, Flexibilty training, Gait and locomotor training, Passive ROM, Active ROM, Dynamic Lumbar Stabilization For the Purpose of:: To decrease pain, To increase ROM, To improve muscle performance and motor function Cryotherapy (ice pack, ice massage): Yes Vasopneumatic device: Yes For the Purpose of:: To decrease pain Thank you for the opportunity to evaluate your patient. For Medicare and Medicare HMO plans, please review the plan of care and approve it. It will need to be FAXED BACK to us at [phone] for Medicare purposes. For Medicare only, by signing this I certify the plan of care. Please let me know if there are questions or concerns regarding this plan of care. Physician Signature: Date:
--- NOTE | 2021-02-15 15:21 | HP.PT.NRP ---
CONOR LIM was seen in my office for initial evaluation on 10/25/20. The following Plan of Care was established for this patient: Initial Frequency: 2-3x /Week Initial Duration: 4-6 Weeks Patient/Client Instruction: Educate patient on: Condition, Plan of Care For the Purpose of:: To improve self management Therapeutic Exercise to Include: Strength training, Endurance training, Balance training, Flexibilty training, Gait and locomotor training, Passive ROM, Active ROM, Dynamic Lumbar Stabilization For the Purpose of:: To decrease pain, To increase ROM, To improve muscle performance and motor function Cryotherapy (ice pack, ice massage): Yes Vasopneumatic device: Yes For the Purpose of:: To decrease pain This patient was last seen in our office . Pertinent comments regarding their Physical therapy will appear below: Pt was treated for 11 PT visits for L knee pain through the date of 11/30/20. Pt has not returned through this date and is discontinued at this time. At this point I will be discontinuing this patient from physical therapy. I would be happy to see this patient again in the future if found appropriate by the physician. Thank you! Gene Saunders, PT, ATC
== END 2020-11-30 19:00 | disposition home or self-care (01) ==
LOC: PT 09:30
PROVIDERS: PCP Family Medicine; Referring Provider Family Medicine; Visit Provider Family Medicine
DX: M25.569 Pain in unspecified knee (principal)
CPT/HCPCS: 97016; 97110; 97161

== ENCOUNTER 2021-02-20 09:49 | Outpatient (RCR) | payer OTHER, MEDICARE, SELFPAY ==
[2020-04-19 10:00] VITALS: BMI 30.5
[2021-02-20 10:15] LABS: INR Fingerstick 2.6; Prothrombin Time Fingerstick 29.1 SEC (11.9-14.4)
== END 2021-02-20 18:00 | disposition home or self-care (01) ==
LOC: LAB 09:49
PROVIDERS: PCP Family Medicine; Referring Provider Internal Medicine Cardiovascular Disease; Visit Provider Internal Medicine Cardiovascular Disease
DX: I48.11 Longstanding persistent atrial fibrillation (principal); Z79.01 Long term (current) use of anticoagulants
CPT/HCPCS: 36416; 85610

== ENCOUNTER → 2021-03-23 10:12 | Outpatient (CLI) | payer OTHER, MEDICARE, SELFPAY ==
[2020-04-19 10:00] VITALS: BMI 30.5
--- NOTE | 2021-03-23 10:33 | BD_ITS ---
STUDY: DUAL ENERGY X-RAY ABSORPTIOMETRY / DXA REASON FOR EXAM: Female, 75 years old. 733.00OsteoporosisBONE DENSITY REASON FOR EXAM TECHNIQUE: Bone Mineral Density (BMD) measurements of lumbar spine and bilateral hips were obtained. COMPARISON: Comparison is made with prior examination dated 11/13/2018. FINDINGS: Lumbar Spine (L1-L4): g/cm2 (0.807) / T-score (-2.3) / Z-score (0.3) Findings are suggestive of osteopenia with a moderate fracture risk. Left Femur Total: g/cm2 (0.811) / T-score (-1.1) / Z-score (0.9) Left Femoral Neck: g/cm2 (0.693) / T-score (-1.4) / Z-score (0.8) Right Femur Total: g/cm2 (0.801) / T-score (-1.2) / Z-score (0.8) Right Femoral Neck: g/cm2 (0.737) / T-score (-1.0) / Z-score (1.2) The T-Scores on the most recent prior examination were: Lumbar Spine (L1-L4): There has been worsening of bone density since the previous examination. Left Femur Total: which represents a worsening of 2.6%. Right Femur Total: which represents an improvement of 1%. BD/Dexa Bone Density Study IMPRESSION: The patient is considered osteopenic as outlined below according to World Alan Organization (WHO) criteria with a high fracture risk. There has been worsening of bone density since the previous examination. Reference Information: The T-score is the number of standard deviations above or below the standard which is normal for young adults at their peak bone mineral density. The World Health Organization (WHO) interprets the T-scores as follows: Above -1 Normal bone density Between -1 and -2.5 Osteopenia Equal to / or below -2.5 Osteoporosis As a practical clinical guideline, osteopenia may be graded as follows: Mild -1 through -1.5 Moderate -1.6 through -2.0 Severe -2.1 through -2.4 The Z-score is the number of standard deviations above or below age-matched controls. A Z-score of less than -1.5 would be considered abnormal. References: 1. NIH Osteoporosis and Related Bone Diseases www osteo.org 2. International Society for Clinical Densitometry www iscd.org 3. National Osteoporosis Foundation www nof.org Electronically Signed: Jimy Mueller MD at 14:35 EDT , Service support ,
[2021-03-23 11:23] LABS: Vitamin D,25 Hydroxy 80.4 ng/mL
[2021-03-23 11:26] LABS: Hemoglobin A1c 6.3 % (3.8-5.6)
[2021-03-23 11:30] LABS: Anion Gap 7 (5-15); BUN 13 mg/dL (7-18); BUN/Creat Ratio 21.2 RATIO (10-20); Calcium,Total 9.2 mg/dL (8.5-10.1); Chloride 103 mmol/L (98-107); Cholesterol 183 mg/dL (200); Creatinine, Serum 0.61 mg/dL (0.55-1.02); EST Glomerular Filtration Rate 100 mL/min (>60); Est Glom Filt Rate - Afr Amer 121 mL/min (>60); Glucose 110 mg/dL (74-106); High Density Lipoprotein 40 mg/dL; Potassium 3.9 mmol/L (3.5-5.1); Sodium Level 138 mmol/L (136-145); Thyroid Stim Hormone (TSH) 2.47 uIU/mL (0.358-3.74); Triglycerides 174 mg/dL; Very Low Density Lipoprotein 35 mg/dL (5-40)
== END ==
PROVIDERS: PCP Family Medicine; Referring Provider Family Medicine; Visit Provider Family Medicine
DX: Z00.00 Encounter for general adult medical examination without abnormal findings (principal); E11.9 Type 2 diabetes mellitus without complications; M81.0 Age-related osteoporosis without current pathological fracture
CPT/HCPCS: 36415; 77080; 80048; 80061; 82306; 83036; 84443

== ENCOUNTER 2021-04-22 18:39 | Emergency (ER) | payer OTHER, MEDICARE, SELFPAY ==
[2021-04-22 18:40] VITALS: BP 181/84; PULSE 95; RESP 16; TEMP 36.8; O2SAT 97; BMI 33.8
[2021-04-22 19:13] VITALS: BP 161/108; PULSE 98; RESP 18; O2SAT 96
--- NOTE | 2021-04-22 19:24 | EKG12_ITS ---
Test Reason : AFIB Blood Pressure : / mmHG Vent. Rate : 093 BPM Atrial Rate : 241 BPM P-R Int : 000 ms QRS Dur : 090 ms QT Int : 314 ms P-R-T Axes : 000 061 -57 degrees QTc Int : 390 ms Atrial fibrillation with occasional ventricular-paced complexes ST & T wave abnormality, consider anterolateral ischemia Abnormal ECG Confirmed by JAMA BANUELOS, ALONDRA ([id number]), continuity editor KELBY ANDREWS ([id number]) on 04/24/2021 10:39:20 AM Referred By: Confirmed By:ALONDRA YUN MD
--- NOTE | 2021-04-22 19:24 | CT_ITS ---
EXAM: CT HEAD WITHOUT INTRAVENOUS CONTRAST : 1945 CLINICAL INDICATION: headache TECHNIQUE: Multiple axial images were obtained of the head without intravenous contrast. This CT exam was performed using one or more of the following dose reduction techniques: automated exposure control, adjustment of the mA and/or kV according to patient size, and/or use of iterative reconstruction technique. This report was created using ClearView™ Audio report generation technology. COMPARISON: None. FINDINGS: BRAIN AND EXTRA-AXIAL SPACES: There are postsurgical changes in the left posterior fossa. The ventricular system and cortical sulci are the upper limits of normal in size. No intra- or extra-axial hemorrhage. No evidence of acute infarct. No intracranial mass or mass effect. There is preservation of the de leon/white matter interface. Basal cisterns are patent. BONES/JOINTS: Unremarkable. No discrete lytic or blastic abnormalities. SINUSES: Unremarkable as visualized. Clear. MASTOID AIR CELLS: Unremarkable. Clear. ORBITS: Visualized globes, extraocular muscles, optic nerves and retrobulbar fat appear unremarkable. CT/Brain/Head without Contrast IMPRESSION: No acute findings in the head/brain. Individualized dose optimization techniques were used for this CT. at 2123 Reported and signed by: Yonny Cai MD Electronically Signed: Yonny Cai MD at 21:22 EDT Tel , Service support ,
[2021-04-22 19:33] LABS: Absolute Lymphocyte Count 3.16 X10^3/uL (0.83-4.51); Absolute Neutrophil Count 5.6 X10^3/uL (2.0-7.7); Basophil# 0.08 X10^3/uL; Basophil% 0.8 % (0-1); Eosinophil# 0.29 X10^3/uL; Eosinophils% 2.9 % (0-5); Hematocrit 39.9 % (37-47); Hemoglobin 12.5 g/dL (12.0-15.0); Lymphocyte # 3.16 X10^3/ul (0.83-4.51); Lymphocyte % 31.5 % (19-41); Mean Corp Hgb Conc 31.3 g/dL (32-36); Mean Corpuscular Hgb 29.4 pg (27.0-32.0); Mean Corpuscular Volume 93.9 fL (81-99); Mean Platelet Vol. 9.4 fl (6.2-12.0); Monocyte# 0.79 X10^3/uL; Monocyte% 7.9 % (0-10); NRBC Flagged by Analyzer 0 % (0-5); Neutrophil # 5.61 X10^3/uL (2.7-7.7); Neutrophil % 55.9 % (47-70); Platelet Count 355 K/mm3 (150-450); RBC Distribution Width CV 13.8 % (11.6-14.6); RBC Distribution Width SD 47.6 fl (35.1-43.9); Red Blood Count 4.25 M/mm3 (4.2-5.4)
[2021-04-22 19:45] VITALS: BP 156/84; PULSE 90; RESP 18; O2SAT 96
[2021-04-22 19:46] LABS: Anion Gap 5 (5-15); BUN 13 mg/dL (7-18); BUN/Creat Ratio 15.5 RATIO (10-20); Calcium,Total 9.1 mg/dL (8.5-10.1); Chloride 104 mmol/L (98-107); Creatinine, Serum 0.84 mg/dL (0.55-1.02); EST Glomerular Filtration Rate 70 mL/min (>60); Est Glom Filt Rate - Afr Amer 84 mL/min (>60); Glucose 135 mg/dL (74-106); Potassium 3.7 mmol/L (3.5-5.1); Sodium Level 140 mmol/L (136-145); Troponin-I HS 7 pg/mL (3.0-54.0)
[2021-04-22 20:07] LABS: Bacteria 0 SEEN /hpf (None Seen); Color, Urine Straw (Yellow); Glucose, Dipstick Normal (Normal); Ketone-Dipstick Negative (Negative); Leukocyte Esterase-Dipstick Negative /ul (Negative); Mucous, Urine 0 SEEN /hpf (<or=2+); Nitrite-Dipstick Negative (Negative); Occult Blood-Urine Negative /ul (Negative); Protein-Dipstick Negative (Negative); Squamous Epithelial Cells - UA 0 SEEN /hpf (5-10); Urine Bilirubin Dipstick Negative (Negative); Urine Clarity Clear (Clear); Urine Urobilinogen Normal (Normal); White Blood Cells 0 SEEN /hpf (0-5)
--- NOTE | 2021-04-22 20:20 | RAD_ITS ---
STUDY: X-RAY CHEST REASON FOR EXAM: Female, 75 years old. Headache. TECHNIQUE: AP COMPARISON: 04/02/2014 CXR FINDINGS: No evidence of pneumonia, pulmonary edema, pneumothorax or pleural effusion. Cardiac silhouette, hilar and mediastinal contours with no acute findings. Mild cardiomegaly. Implanted cardiac device left chest with 2 intact leads extending over the right atrium and right ventricle. Atherosclerosis of the thoracic aorta. Degenerative osseous changes with no acute osseous abnormality. RAD/Chest 1 View (Portable) IMPRESSION: No acute findings. Electronically Signed: Mandeep Rodriguez MD at 21:25 EDT Tel , Service support ,
[2021-04-22 20:25] LABS: Red Blood Cells-Urine 0-5 SEEN /hpf (0-5)
[2021-04-22 21:24] VITALS: BP 139/68; PULSE 76; RESP 18; O2SAT 95
--- NOTE | 2021-04-22 21:33 | EX.ED.DYSGE1 ---
HPI History of Present Illness Chief Complaint: Headache Informant: patient Narrative Narrative: 75-year-old female presents for the evaluation of headache and hypertension. Patient has a history of essential hypertension as well as persistent A. fib. She has a pacemaker. She tells me that for the past 3 days she has experienced a headache and her blood pressures have been much higher than normal. She denies any missed doses of medication. Any increase in salt intake. She denies any arm leg speech or vision symptoms. She is on Coumadin. [facility] Medical History Arthritis AV node dysfunction Benign essential blepharospasm Breast cancer Breast carcinoma Essential hypertension GERD (gastroesophageal reflux disease) History 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 hernia Hyperlipidemia FDC current use of anticoagulant Longstanding persistent atrial fibrillation Neurological movement disorder Osteoporosis Parathyroid disease Presence of cardiac pacemaker (04/07/14) Sick sinus syndrome Type 2 diabetes mellitus without complication Home Medications diazepam 5 mg PO PRN PRN 04/06/14 [History Last Taken 03/23/15 07:00] calcium citrate-vitamin D3 1 ea PO DAILY 03/16/15 [History Last Taken Unknown] anastrozole 1 mg tablet 1 mg PO QDAY 30 Days #30 tab 08/07/17 [History Last Taken Unknown] cholecalciferol (vitamin D3) 1,250 mcg (50,000 unit) capsule 50,000 unit PO QDAY cap 08/07/17 [History Last Taken Unknown] lactobacillus combination no.8 3 billion cell capsule 3,000 mmu cells PO QDAY 09/13/17 [History Last Taken Unknown] FreeStyle Lite Strips #100 ea NS 10/30/17 [Rx Last Taken Unknown] metformin 500 mg tablet 500 mg PO BID #60 tab 11/04/17 [Rx Last Taken Unknown] levothyroxine 25 mcg tablet 25 mcg PO DAILY #30 tab 08/20/18 [Rx Last Taken Unknown] lansoprazole 30 mg capsule,delayed release 30 mg PO DAILY #90 ea 04/30/20 [Rx Last Taken Unknown] ezetimibe 10 mg tablet See Rx Instructions .ROUTE .COMPLEX #90 tab 07/01/20 [Rx Last Taken Unknown] furosemide 40 mg tablet 40 mg PO DAILY #90 tab 08/09/20 [Rx Last Taken Unknown] warfarin 3 mg tablet See Rx Instructions PO .COMPLEX #135 tab 11/09/20 [Rx Last Taken Unknown] potassium chloride 20 mEq tablet,extended release(part/cryst) 20 meq PO DAILY #90 tab 12/12/20 [Rx Last Taken Unknown] digoxin 125 mcg (0.125 mg) tablet 125 mcg PO DAILY #90 tab 03/03/21 [Rx Last Taken Unknown] verapamil 300 mg capsule 24hr pellet CT,ext.release 300 mg PO DAILY #90 cap 04/03/21 [Rx Last Taken Unknown] cephalexin 250 mg capsule cap PO 04/19/21 [History Last Taken Unknown] Allergy/AdvReac Type Severity Reaction Status Date / Time codeine Allergy Unknown Verified 04/22/21 18:46 sertraline Allergy Unknown Verified 04/22/21 18:46 Family History Mother Hypertension CHF (congestive heart failure) Father Lung cancer Skin cancer Son Afib Diabetes Hypertension Sister Hypertension Surgical History brow lift H/O sinus surgery History of section History of colonoscopy (2017) History of lymph node dissection of left axilla (2017) History of parathyroidectomy Status post left breast lumpectomy (2017) Status post right breast lumpectomy Social History Smoking Status: Former smoker how long ago did patient quit smokin second hand exposure: No alcohol intake: never substance use type: does not use what type of physical activity do you participate in: none ROS ROS ED Constitutional Constitutional ED: Denies chills or weight loss Eyes Eyes: Denies change in vision or diplopia ENT ENT ED: Reports rhinorrhea; Denies ear pain or sore throat Cardiovascular Cardiovascular: Denies chest pain, orthopnea, palpitations or racing heartbeat Respiratory/Chest Respiratory/Chest: Denies cough, dyspnea or orthopnea Gastrointestinal Gastrointestinal: Denies abdominal pain, diarrhea, nausea or vomiting Genitourinary Genitourinary ED: Denies dysuria, hematuria or urinary frequency Musculoskeletal Musculoskeletal: Denies arthralgias or myalgias Integumentary Denies abscess or rash Neurologic Neurologic: Reports headache(s); Denies weakness Psychiatric Psychiatric: Denies anxiety, depression, suicidal ideation or suicidal thoughts Endocrine Endocrinology: Denies polydipsia, polyphagia or polyuria Allergic/Immunologic Allergic/Immunologic ED: Denies mouth swelling, tongue swelling or urticaria EXAM Physical Exam Const Vital Signs: 04/22/21 18:40 04/22/21 19:13 04/22/21 19:45 Temperature 98.3 F Temperature Source Temporal Pulse Rate 95 98 90 Respiratory Rate 16 18 18 Blood Pressure 181/84 H 161/108 H 156/84 H Blood Pressure Mean 116 125 108 Pulse Ox 97 96 96 Oxygen Delivery Method Room Air Room Air Room Air 04/22/21 21:24 Temperature Temperature Source Pulse Rate 76 Respiratory Rate 18 Blood Pressure 139/68 H Blood Pressure Mean 91 Pulse Ox 95 Oxygen Delivery Method Room Air Positive well nourished and well developed General Appearance ED: well developed HEENT Reports normocephalic, head/scalp atraumatic and moist mucous membranes Eyes PERRL and EOMs intact bilaterally Neck no lymphadenopathy, supple and no JVD Resp normal respiratory effort and clear to auscultation bilaterally Cardio regular rate, regular rhythm and no murmurs GI normal to inspection, nondistended, normoactive bowel sounds and non-tender Palpation: soft Back/Spine no CVA tenderness and normal ROM Extremity normal to inspection General Extremety ED: Negative for edema General Extremity: Negative for edema Neuro oriented x3 and CN's II-XII intact bilaterally Sensorium / Orientation: alert Motor Exam: strength 5/5 throughout Psych mental status grossly normal Mood & Affect: Negative for depressed or tearful Skin no rashes or lesions noted and no wounds MDM MDM MDM Narrative Medical decision making narrative: Basic blood work was rather unremarkable. No protein in the urine. My trepidation of the chest x-ray is no acute process. CT the brain shows no bleed or mass. Patient blood pressures come down into the one thirties to 140 range systolically. Heart rate is in the seventies. This point I think we need to make any medications changes. I will have her continue to monitor and report back to cardiology Lab Data Attestation: I reviewed the patient's lab results. Labs: Laboratory Results - last 24 hr 04/22/21 04/22/21 04/22/21 19:12 19:12 19:59 WBC 10.0 RBC 4.25 Hgb 12.5 Hct 39.9 MCV 93.9 MCH 29.4 MCHC 31.3 L RDW Std Deviation 47.6 H RDW Coeff of Po 13.8 Plt Count 355 MPV 9.4 Immature Gran % (Auto) 1.000 H Neut % (Auto) 55.9 Lymph % (Auto) 31.5 [place] % (Auto) 7.9 Eos % (Auto) 2.9 Baso % (Auto) 0.8 Absolute Neuts (auto) 5.6 Absolute Lymphs (auto) 3.16 Nucleated RBC % 0 Sodium 140 Potassium 3.7 Chloride 104 Carbon Dioxide 31.0 Anion Gap 5 BUN 13 Creatinine 0.84 Estim Creat Clear Calc 46.40 Est GFR (MDRD) Af Amer 84 Est GFR (MDRD) Non-Af 70 BUN/Creatinine Ratio 15.5 Glucose 135 H Calcium 9.1 Troponin I High Sens 7 Urine Color Straw Urine Clarity Clear Urine pH 7.0 Ur Specific [place] 1.010 Urine Protein Negative Urine Glucose (UA) Normal Urine Ketones Negative Urine Occult Blood Negative Urine Nitrite Negative Urine Bilirubin Negative Urine Urobilinogen Normal Ur Leukocyte Esterase Negative Urine RBC 0-5 SEEN Urine WBC 0 SEEN Ur Squamous Epith Cells 0 SEEN Urine Bacteria 0 SEEN Urine Mucus 0 SEEN Radiography Diagnostic Testing: Radiology Impression Brain CT 04/22/21 19:24 IMPRESSION: No acute findings in the head/brain. Individualized dose optimization techniques were used for this CT. at 2123 Reported and signed by: Yonny Cai MD Electronically Signed: Yonny Cai MD at 21:22 EDT Tel , Service support , Chest X-Ray 04/22/21 20:20 IMPRESSION: No acute findings. Electronically Signed: Mandeep Rodriguez MD at 21:25 EDT Tel , Service support , EKG Initial EKG: Attestation: I personally reviewed and interpreted this EKG as follows: Comments: Atrial fibrillation with occasional paced beat ventricular rate of 93. Discharge Plan Triage Chief Complaint: Headache ED Provider: Dustin Hess Dx/Rx/DC Orders Clinical Impression: Hypertension, Headache Instructions: ED High Blood Pressure Hypertension Prescriptions: No Action anastrozole 1 mg tablet 1 mg PO QDAY 30 Days Qty: 30 RF: 0 cholecalciferol (vitamin D3) 50,000 unit capsule 50,000 unit PO QDAY RF: 0 lactobacillus combination no.8 [Adult Probiotic] 3 billion cell capsule 3,000 mmu cells PO QDAY RF: 0 cephalexin 250 mg capsule PO RF: 0 diazepam 5 MG tablet 5 mg PO PRN PRN (Reason: Spasms) RF: 0 calcium citrate-vitamin D3 1 EACH tablet 1 ea PO DAILY RF: 0 (DME) blood sugar diagnostic [FreeStyle Lite Strips] strip See Dose Instructions .ROUTE .MEDSUPPLY Qty: 100 RF: 3 metformin 500 mg tablet 500 mg PO BID Qty: 60 RF: 11 levothyroxine 25 mcg tablet 25 mcg PO DAILY Qty: 30 RF: 0 lansoprazole 30 mg capsule,delayed release(DR/EC) 30 mg PO DAILY Qty: 90 RF: 3 ezetimibe 10 mg tablet See Rx Instructions .ROUTE .COMPLEX Qty: 90 RF: 3 furosemide 40 mg tablet 40 mg PO DAILY Qty: 90 RF: 3 warfarin 3 mg tablet See Rx Instructions mg PO .COMPLEX Qty: 135 RF: 3 potassium chloride 20 mEq tablet,ER particles/crystals 20 meq PO DAILY Qty: 90 RF: 3 digoxin 125 mcg (0.125 mg) tablet 125 mcg PO DAILY Qty: 90 RF: 4 verapamil 300 mg capsule, [address] 300 mg PO DAILY Qty: 90 RF: 4 Primary Care Provider: Shen Henriquez Referrals: Chetan Christianson MD [STAFF PHYSICIAN] - 1-2 Weeks Shen Henriquez MD [Primary Care Provider] - Disposition Disposition: Home, Self Care
[2021-04-22 21:42] VITALS: BP 148/80; PULSE 78; RESP 18; O2SAT 96
== END 2021-04-22 21:43 | disposition home or self-care (01) ==
PROVIDERS: Emergency Provider Emergency Medicine; PCP Family Medicine
DX: I10 Essential (primary) hypertension (principal); R51.9 Headache, unspecified; Z79.01 Long term (current) use of anticoagulants; Z95.0 Presence of cardiac pacemaker; Z87.891 Personal history of nicotine dependence
CPT/HCPCS: 70450; 71045; 80048; 81001; 84484; 85025; 93005; 99284; A4216

== ENCOUNTER 2021-06-24 11:05 | Outpatient (RCR) | payer OTHER, MEDICARE, SELFPAY ==
[2020-04-19 10:00] VITALS: BMI 30.5
[2021-06-24 11:20] LABS: INR Fingerstick 2.7; Prothrombin Time Fingerstick 30.3 SEC (11.9-14.4)
== END 2021-07-04 18:00 | disposition home or self-care (01) ==
LOC: LAB 11:05
PROVIDERS: PCP Family Medicine; Referring Provider Internal Medicine Cardiovascular Disease; Visit Provider Internal Medicine Cardiovascular Disease
DX: I48.11 Longstanding persistent atrial fibrillation (principal); Z79.01 Long term (current) use of anticoagulants
CPT/HCPCS: 36416; 85610

== ENCOUNTER 2021-09-28 08:14 | Outpatient (CLI) | payer OTHER, MEDICARE, SELFPAY ==
[2021-09-28 10:37] LABS: Microalbumin:Creatinine Ratio 141.1 mg/g CRE (<30 mg/g CRE)
[2021-09-28 10:45] LABS: Anion Gap 5 (5-15); BUN 13 mg/dL (7-18); BUN/Creat Ratio 16.8 RATIO (10-20); Calcium,Total 9.3 mg/dL (8.5-10.1); Chloride 104 mmol/L (98-107); Cholesterol 163 mg/dL (200); Creatinine, Serum 0.78 mg/dL (0.55-1.02); EST Glomerular Filtration Rate 76 mL/min (>60); Est Glom Filt Rate - Afr Amer 93 mL/min (>60); Glucose 104 mg/dL (74-106); High Density Lipoprotein 38 mg/dL; Potassium 3.8 mmol/L (3.5-5.1); Sodium Level 139 mmol/L (136-145); Triglycerides 189 mg/dL; Very Low Density Lipoprotein 38 mg/dL (5-40)
== END 2021-09-28 23:59 | disposition home or self-care (01) ==
LOC: LAB 08:21
PROVIDERS: PCP Family Medicine; Referring Provider Family Medicine; Visit Provider Family Medicine
DX: E11.9 Type 2 diabetes mellitus without complications (principal)
CPT/HCPCS: 36415; 80048; 80061; 82043; 82570

== ENCOUNTER 2021-11-18 10:17 | Outpatient (RCR) | payer OTHER, MEDICARE, SELFPAY ==
[2021-07-05 02:10] VITALS: BMI 30.5
[2021-11-18 10:31] LABS: INR Fingerstick 2.4
== END 2021-11-18 18:00 | disposition home or self-care (01) ==
LOC: LAB 10:17
PROVIDERS: PCP Family Medicine; Referring Provider Internal Medicine Cardiovascular Disease; Visit Provider Internal Medicine Cardiovascular Disease
DX: I48.11 Longstanding persistent atrial fibrillation (principal); Z79.01 Long term (current) use of anticoagulants
CPT/HCPCS: 36416; 85610

== ENCOUNTER → 2022-03-21 | Outpatient (CLI) | payer OTHER, MEDICARE, SELFPAY ==
[2022-03-21 15:44] LABS: Anion Gap 9 (5-15); BUN 12 mg/dL (7-18); Calcium,Total 9.5 mg/dL (8.5-10.1); Chloride 104 mmol/L (98-107); Cholesterol 151 mg/dL (200); Creatinine, Serum 0.92 mg/dL (0.55-1.02); EST Glomerular Filtration Rate 63 mL/min (>60); Est Glom Filt Rate - Afr Amer 76 mL/min (>60); Free T3 2.7 pg/mL (2.18-3.98); Glucose 110 mg/dL (74-106); High Density Lipoprotein 41 mg/dL; Potassium 3.6 mmol/L (3.5-5.1); Sodium Level 141 mmol/L (136-145); T4 Free Direct 0.99 ng/dL (0.76-1.46); Thyroid Stim Hormone (TSH) 2.03 uIU/mL (0.358-3.74); Triglycerides 136 mg/dL; Very Low Density Lipoprotein 27 mg/dL (5-40)
[2022-03-21 15:52] LABS: Hemoglobin A1c 6.4 % (3.8-5.6)
== END | disposition home or self-care (01) ==
PROVIDERS: PCP Family Medicine; Referring Provider Family Medicine; Visit Provider Family Medicine
DX: E03.9 Hypothyroidism, unspecified (principal); E11.9 Type 2 diabetes mellitus without complications
CPT/HCPCS: 36415; 80048; 80061; 83036; 84439; 84443; 84481

== ENCOUNTER → 2022-04-02 | Outpatient (CLI) | payer OTHER, MEDICARE, SELFPAY ==
--- NOTE | 2022-04-02 10:22 | RAD_ITS ---
STUDY: X-RAY - LEFT WRIST REASON FOR EXAM: Left wrist pain extending to the thumb. TECHNIQUE: 3 view(s) of the wrist were obtained. COMPARISON: None. FINDINGS: Normal visualized distal radius and ulna. Normal radiocarpal articulation. Normal distal radioulnar articulation. There is a small cyst in the lunate. Normal carpal articulations. There is joint space loss of the carpometacarpal articulation of the thumb. Normal second through fifth carpometacarpal articulations. Normal visualized metacarpal bones. There is chondrocalcinosis in the triangular fibrocartilage and lunotriquetral ligament. RAD/Wrist min 3 Views IMPRESSION: Arthrosis of the first carpometacarpal articulation. Chondrocalcinosis. Electronically Signed: Simba Resendez MD at 14:16 EDT ,
== END | disposition home or self-care (01) ==
PROVIDERS: PCP Family Medicine; Referring Provider Nurse Practitioner Family; Visit Provider Nurse Practitioner Family
DX: M25.532 Pain in left wrist (principal)
CPT/HCPCS: 73110

== ENCOUNTER 2022-04-26 11:29 | Outpatient (RCR) | payer OTHER, MEDICARE, SELFPAY ==
[2021-12-03 02:50] VITALS: BMI 30.5
[2022-04-26 11:45] LABS: INR Fingerstick 1.9; Prothrombin Time Fingerstick 22.9 SEC (11.7-14.9)
== END 2022-04-26 18:00 | disposition home or self-care (01) ==
LOC: LAB 11:29
PROVIDERS: PCP Family Medicine; Referring Provider Internal Medicine Cardiovascular Disease; Visit Provider Internal Medicine Cardiovascular Disease
DX: I48.11 Longstanding persistent atrial fibrillation (principal); Z79.01 Long term (current) use of anticoagulants
CPT/HCPCS: 36416; 85610

== ENCOUNTER → 2022-05-07 | Outpatient (CLI) | payer OTHER, MEDICARE, SELFPAY ==
--- NOTE | 2022-05-07 12:35 | ECHOD_ITS ---
Reason For Study: Chronic A. fib Procedure This was a 2D Doppler, Color Flow transthoracic echocardiogram. Exam performed in department. Left Ventricle Normal LV size. Left ventricular systolic function is normal. The estimated ejection fraction is 55 %. No regional wall motion abnormalities noted. Right Ventricle Normal RV size. ICD or pacer leads identified within the right ventricle. Normal systolic function. Atria The left atrium is moderately enlarged. The right atrium is mildly enlarged. ICD or pacer leads identified within the right atrium. Mitral Valve Normal mitral valve. Mild (1+) eccentric mitral valve insufficiency. Tricuspid Valve Normal tricuspid valve. Mild (1+) tricuspid valve insufficiency. Pulmonary artery systolic pressure is 30 mmHg. Aortic Valve Trisinus/trileaflet aortic valve. Mild diffuse aortic valve thickening. Peak aortic valve gradient 21 mmHg. Mean aortic valve gradient 13 mmHg. Mild (1+) aortic valve insufficiency. Pulmonic Valve Normal pulmonic valve. Great Vessels Normal aortic root. The pulmonary artery is normal size. Normal inferior vena cava. Pericardium/Pleural No pericardial effusion. MMode/2D Measurements & Calculations LVIDd: 4.7 cm IVSd: 0.99 cm LVOT diam: 1.9 cm LVIDs: 2.6 cm LVPWd: 0.88 cm LVOT area: 2.7 cm2 RVDd: 3.5 cm FS: 45.3 % Ao root diam: 3.2 cm LAV(MOD-sp2): 69.1 ml LVAd ap4: 24.7 cm2 LVLd ap4: 7.0 cm EDV(MOD-sp4): 72.5 ml EDV(sp4-el): 75.3 ml LVAs ap4: 11.7 cm2 LVLs ap4: 5.8 cm ESV(MOD-sp4): 19.9 ml ESV(sp4-el): 19.8 ml EF(MOD-sp4): 72.6 % EF(sp4-el): 73.8 % LVAd ap2: 24.1 cm2 SV(MOD-sp4): 52.6 ml SV(MOD-sp2): 47.3 ml LVLd ap2: 6.8 cm EDV(MOD-sp2): 70.8 ml EDV(sp2-el): 72.5 ml LVAs ap2: 12.4 cm2 LVLs ap2: 5.8 cm ESV(MOD-sp2): 23.5 ml ESV(sp2-el): 22.4 ml EF(MOD-sp2): 66.9 % SV(sp4-el): 55.6 ml LA dimension(2D): 4.5 cm LA A4 area: 29.3 cm2 RA A4 area: 25.5 cm2 Doppler Measurements & Calculations MV E max zohaib: 109.1 cm/sec Ao V2 max: 239.5 cm/sec AI max zohaib: 438.2 cm/sec Ao max P.1 mmHg AI max P.8 mmHg Ao V2 mean: 174.6 cm/sec Ao mean P.7 mmHg AI dec slope: 206.2 cm/sec2 Ao V2 VTI: 46.4 cm AI P1/2t: 622.5 msec ERIN(I,D): 1.5 cm2 ERIN(V,D): 1.5 cm2 LV V1 max: 133.6 cm/sec SV(LVOT): 71.0 ml PA V2 max: 119.1 cm/sec LV V1 max P.2 mmHg PA V2 mean: 86.6 cm/sec LV V1 mean P.3 mmHg LV V1 mean: 97.7 cm/sec LV V1 VTI: 26.3 cm TR max zohaib: 251.9 cm/sec TR max P.7 mmHg ECHO/Echo Complete Interpretation Summary Normal LV size. Left ventricular systolic function is normal. The estimated ejection fraction is 55 %. Mild (1+) eccentric mitral valve insufficiency. Mild (1+) aortic valve insufficiency. Mean aortic valve gradient 13 mmHg. Ordering Physician: Chetan Christianson Referring Physician: Shen Henriquez Performed By: Gabriela Muñoz RDCS
== END | disposition home or self-care (01) ==
LOC: CVS 12:34
PROVIDERS: PCP Family Medicine; Referring Provider Internal Medicine Cardiovascular Disease; Visit Provider Internal Medicine Cardiovascular Disease
DX: I48.11 Longstanding persistent atrial fibrillation (principal); R06.02 Shortness of breath; Z95.0 Presence of cardiac pacemaker
CPT/HCPCS: 93306

== ENCOUNTER → 2022-07-02 | Outpatient (CLI) | payer OTHER, MEDICARE, SELFPAY ==
--- NOTE | 2022-07-02 15:22 | RAD_ITS ---
INDICATION: LEG INJURY EXAMINATION/TECHNIQUE: X-RAY - LEFT XR Knee Complete 4 Views or More 4 VIEWS COMPARISON: October 14, 2020. FINDINGS: SOFT TISSUES: Diffuse soft tissue edema, most prominent prepatellar. No radiopaque foreign body. Mild possibly dystrophic mineralization along the posterior femoral gastrocnemius insertion. BONES/JOINTS: Normal alignment. No effusion. No acute fracture or subluxation.. Lateral knee compartment space narrowing. Minimal tricompartment osteophyte formation. No aggressive osseous lesion. RAD/Knee 4 or More Views IMPRESSION: Diffuse edema most prominent anteriorly as can be seen with contusion. No evidence of underlying osseous injury. Chronic mineralization along the expected location of the gastrocnemius insertion mildly increased from October 14, 2020, possibly dystrophic from prior injury. Capsular mineralization also possible. Electronically Signed: Mike Rodas MD at 5:45 EST ,
== END | disposition home or self-care (01) ==
PROVIDERS: PCP Family Medicine; Referring Provider Family Medicine; Visit Provider Family Medicine
DX: S89.92XA Unspecified injury of left lower leg, initial encounter (principal)
CPT/HCPCS: 73564

== ENCOUNTER → 2022-07-05 | Outpatient (CLI) | payer OTHER, MEDICARE, SELFPAY ==
--- NOTE | 2022-07-05 14:50 | VDLE_ITS ---
Reason For Study: LEG PAIN AND SWELLING Procedure LEFT This is a venous duplex using B-mode, color GSV is normal. flow and spectral Doppler. CFV is compressible, spontaneous, phasic, Exam performed in department. competent, and demonstrates normal The exam was diagnostic. augmentation. Technically difficult study due to calf FV is compressible, spontaneous, phasic, swelling and edema. competent and demonstrates normal A preliminary report was called and/or faxed augmentation. to Dr. Henriquez's office. POP V is compressible, spontaneous, phasic, competent and demonstrates normal augmentation. T/P Trunk is compressible. PTV is compressible. LT PerV is compressible. VL/Venous Duplex US, Unilateral Interpretation Summary There is no evidence of left lower extremity deep vein thrombosis. Left great s aphenous vein appears patent and compressible segmentally. This examination was noted to be technical ly difficult Ordering Physician: Shen Henriquez Referring Physician: Shen Henriquez Performed By: Edmundo Mitchell RVT
== END | disposition home or self-care (01) ==
PROVIDERS: PCP Family Medicine; Referring Provider Family Medicine; Visit Provider Family Medicine
DX: M79.605 Pain in left leg (principal)
CPT/HCPCS: 93971

== ENCOUNTER → 2022-09-18 | Outpatient (CLI) | payer OTHER, MEDICARE, SELFPAY ==
[2022-09-18 10:12] LABS: Anion Gap 8 (5-15); BUN 14 mg/dL (7-18); BUN/Creat Ratio 15.8 RATIO (10-20); Calcium,Total 9.1 mg/dL (8.5-10.1); Chloride 104 mmol/L (98-107); Cholesterol 138 mg/dL (200); Creatinine, Serum 0.89 mg/dL (0.55-1.02); EST Glomerular Filtration Rate 65 mL/min (>60); Est Glom Filt Rate - Afr Amer 79 mL/min (>60); Free T3 2.8 pg/mL (2.18-3.98); Glucose 118 mg/dL (74-106); Hemoglobin A1c 6.3 % (3.8-5.6); High Density Lipoprotein 43 mg/dL; Potassium 3.7 mmol/L (3.5-5.1); Sodium Level 139 mmol/L (136-145); T4 Free Direct 1.13 ng/dL (0.76-1.46); Triglycerides 143 mg/dL; Very Low Density Lipoprotein 29 mg/dL (5-40)
== END | disposition home or self-care (01) ==
LOC: MTLAB 08:18
PROVIDERS: PCP Family Medicine; Referring Provider Family Medicine; Visit Provider Family Medicine
DX: E03.9 Hypothyroidism, unspecified (principal); E11.9 Type 2 diabetes mellitus without complications
CPT/HCPCS: 36415; 80048; 80061; 83036; 84439; 84443; 84481

== ENCOUNTER 2022-10-06 10:18 | Outpatient (RCR) | payer OTHER, MEDICARE, SELFPAY ==
[2022-05-04 20:34] VITALS: BMI 30.5
[2022-10-06 10:11] LABS: INR Fingerstick 1.6; Prothrombin Time Fingerstick 19.3 SEC (11.7-14.9)
== END 2022-11-02 21:39 | disposition home or self-care (01) ==
LOC: LAB 10:18
PROVIDERS: PCP Family Medicine; Referring Provider Internal Medicine Cardiovascular Disease; Visit Provider Internal Medicine Cardiovascular Disease
DX: I48.11 Longstanding persistent atrial fibrillation (principal); Z79.01 Long term (current) use of anticoagulants
CPT/HCPCS: 36416; 85610

== ENCOUNTER → 2023-03-30 | Outpatient (CLI) | payer OTHER, MEDICARE, SELFPAY ==
[2023-03-30 11:22] LABS: International Normalized Ratio 2.3; Prothrombin Time (Protime)PT. 25.2 SECONDS (11.7-14.9)
[2023-03-30 11:43] LABS: Anion Gap 8 (5-15); BUN 15 mg/dL (7-18); BUN/Creat Ratio 19.3 RATIO (10-20); Chloride 101 mmol/L (98-107); Creatinine, Serum 0.78 mg/dL (0.55-1.02); EST Glomerular Filtration Rate 76 mL/min (>60); Est Glom Filt Rate - Afr Amer 92 mL/min (>60); Glucose 118 mg/dL (74-106); Potassium 3.5 mmol/L (3.5-5.1); Sodium Level 141 mmol/L (136-145); T4 Free Direct 0.96 ng/dL (0.76-1.46); Thyroid Stim Hormone (TSH) 3.34 uIU/mL (0.358-3.74)
== END | disposition home or self-care (01) ==
LOC: LAB 10:36
PROVIDERS: PCP Family Medicine; Referring Provider Family Medicine; Visit Provider Family Medicine
DX: E11.9 Type 2 diabetes mellitus without complications (principal); E03.9 Hypothyroidism, unspecified
CPT/HCPCS: 36415; 80048; 84439; 84443; 85610

== ENCOUNTER 2023-05-27 09:46 | Outpatient (RCR) | payer OTHER, MEDICARE, SELFPAY ==
[2022-11-02 21:39] VITALS: BMI 30.5
[2023-05-27 11:00] LABS: Prothrombin Time (Protime)PT. 23.2 SECONDS (11.7-14.9)
== END 2023-05-27 18:00 | disposition home or self-care (01) ==
LOC: LAB 09:46
PROVIDERS: PCP Family Medicine; Referring Provider Internal Medicine Cardiovascular Disease; Visit Provider Internal Medicine Cardiovascular Disease
DX: I48.11 Longstanding persistent atrial fibrillation (principal); Z79.01 Long term (current) use of anticoagulants; Z95.0 Presence of cardiac pacemaker
CPT/HCPCS: 36415; 85610

== ENCOUNTER → 2023-07-06 | Outpatient (CLI) | payer OTHER, MEDICARE, SELFPAY ==
[2023-07-06 10:44] LABS: Anion Gap 4 (5-15); BUN 13 mg/dL (7-18); BUN/Creat Ratio 18.6 RATIO (10-20); Calcium,Total 8.5 mg/dL (8.5-10.1); Chloride 107 mmol/L (98-107); Cholesterol 156 mg/dL (200); EST Glomerular Filtration Rate 86 mL/min (>60); Est Glom Filt Rate - Afr Amer 104 mL/min (>60); Glucose 111 mg/dL (74-106); High Density Lipoprotein 40 mg/dL; Potassium 3.9 mmol/L (3.5-5.1); Sodium Level 141 mmol/L (136-145); Triglycerides 152 mg/dL; Very Low Density Lipoprotein 30 mg/dL (5-40)
[2023-07-06 13:35] LABS: Hemoglobin A1c 6.2 % (3.8-5.6)
== END | disposition home or self-care (01) ==
LOC: LAB 09:10
PROVIDERS: PCP Family Medicine; Referring Provider Family Medicine; Visit Provider Family Medicine
DX: E11.9 Type 2 diabetes mellitus without complications (principal)
CPT/HCPCS: 36415; 80048; 80061; 83036

== ENCOUNTER → 2023-07-25 | Outpatient (CLI) | payer OTHER, MEDICARE, SELFPAY ==
--- NOTE | 2023-07-25 13:36 | BD_ITS ---
STUDY: DUAL ENERGY X-RAY ABSORPTIOMETRY / DXA REASON FOR EXAM: Female, 78 years old. [id number] TECHNIQUE: Bone Mineral Density (BMD) measurements of lumbar spine and bilateral hips were obtained. COMPARISON: Comparison is made with prior study March 23, 2021. FINDINGS: Lumbar Spine (L1-L4): g/cm2 (0.881) / T-score (-1.8) / Z-score (1.0) Findings are suggestive of osteopenia with a moderate fracture risk. Left Femur Total: g/cm2 (0.844) / T-score (-0.8) / Z-score (1.3) Left Femoral Neck: g/cm2 (0.706) / T-score (-1.3) / Z-score (1.0) Right Femur Total: g/cm2 (0.809) / T-score (-1.1) / Z-score (1.0) Right Femoral Neck: g/cm2 (0.765) / T-score (-0.8) / Z-score (1.5) The T-Scores on the most recent prior examination were: Lumbar Spine (L1-L4): There has been improvement of bone density since the previous examination. Left Femur Total: which represents an improvement of 4.1%. Right Femur Total: which represents an improvement of 1%. BD/Dexa Bone Density Study IMPRESSION: The patient is considered as outlined below according to World Alan Organization (WHO) criteria with a moderate fracture risk. There has been improvement of bone density since the previous examination. Reference Information: The T-score is the number of standard deviations above or below the standard which is normal for young adults at their peak bone mineral density. The World Health Organization (WHO) interprets the T-scores as follows: Above -1 Normal bone density Between -1 and -2.5 Osteopenia Equal to / or below -2.5 Osteoporosis As a practical clinical guideline, osteopenia may be graded as follows: Mild -1 through -1.5 Moderate -1.6 through -2.0 Severe -2.1 through -2.4 The Z-score is the number of standard deviations above or below age-matched controls. A Z-score of less than -1.5 would be considered abnormal. References: 1. NIH Osteoporosis and Related Bone Diseases www osteo.org 2. International Society for Clinical Densitometry www iscd.org 3. National Osteoporosis Foundation www nof.org Electronically Signed: Jimy Mueller MD at 14:44 EST ,
== END | disposition home or self-care (01) ==
LOC: OPBD 13:30
PROVIDERS: PCP Family Medicine; Referring Provider Family Medicine; Visit Provider Family Medicine
DX: Z00.00 Encounter for general adult medical examination without abnormal findings (principal)
CPT/HCPCS: 77080

== ENCOUNTER → 2023-08-13 | Outpatient (CLI) | payer OTHER, MEDICARE, SELFPAY ==
--- NOTE | 2023-08-13 14:03 | ECHOD_ITS ---
Reason For Study: ARRHYTHMIA Procedure This was a 2D Doppler, Color Flow transthoracic echocardiogram. Exam performed in department. Left Ventricle Normal LV size. Left ventricular systolic function is normal. The estimated ejection fraction is 55 %. No regional wall motion abnormalities noted. Right Ventricle Normal RV size. ICD or pacer leads identified within the right ventricle. Normal systolic function. Atria The left atrium is mildly enlarged. ICD or pacer leads identified within the right atrium. The right atrium is mildly enlarged. Mitral Valve Bileaflet diffuse mitral valve thickening. Tricuspid Valve Normal tricuspid valve. Mild tricuspid valve insufficiency. Pulmonary artery systolic pressure is 33 mmHg. Aortic Valve Trisinus/trileaflet aortic valve. Mild focal aortic valve calcification. Peak aortic valve gradient 28 mmHg. Mean aortic valve gradient 14 mmHg. Mild aortic stenosis. Mild (1+) aortic valve insufficiency. Pulmonic Valve Normal pulmonic valve. Great Vessels Normal aortic root. The pulmonary artery is normal size. Normal inferior vena cava. Pericardium/Pleural No pericardial effusion. MMode/2D Measurements & Calculations LVIDd: 4.6 cm IVSd: 1.1 cm LVOT diam: 1.9 cm LVIDs: 3.1 cm LVPWd: 1.1 cm LVOT area: 3.0 cm2 FS: 33.6 % LAV(MOD-bp): 69.8 ml LVAd ap4: 23.9 cm2 LVAd ap2: 22.3 cm2 LAV(MOD-bp) Indexed: 36.8 ml/m2 LVLd ap4: 7.7 cm LVLd ap2: 7.0 cm LAV(MOD-sp2): 59.8 ml EDV(MOD-sp4): 62.6 ml EDV(MOD-sp2): 61.2 ml LAV(MOD-sp4): 79.6 ml EDV(sp4-el): 63.4 ml EDV(sp2-el): 60.9 ml LVAs ap4: 12.6 cm2 LVAs ap2: 10.7 cm2 LVLs ap4: 6.0 cm LVLs ap2: 5.2 cm ESV(MOD-sp4): 23.9 ml ESV(MOD-sp2): 19.7 ml ESV(sp4-el): 22.4 ml ESV(sp2-el): 18.7 ml EF(MOD-sp4): 61.8 % EF(MOD-sp2): 67.8 % EF(sp4-el): 64.6 % SV(MOD-sp4): 38.7 ml SV(MOD-sp2): 41.5 ml SV(sp4-el): 41.0 ml LA dimension(2D): 5.0 cm Aortic Valve Planimetry: 1.5 cm2 LA A4 area: 24.2 cm2 RA A4 area: 23.6 cm2 TAPSE: 1.7 cm Doppler Measurements & Calculations MV E max blake: 126.8 cm/sec Med Peak E' Blake: 10.0 cm/sec Ao V2 max: 265.4 cm/sec E/E' med: 12.7 Ao max P.2 mmHg Ao V2 mean: 177.8 cm/sec Ao mean P.1 mmHg Ao V2 VTI: 48.3 cm AV (velocity ratio): 0.49 ERIN(I,D): 1.5 cm2 ERIN(V,D): 1.5 cm2 AI max blake: 427.0 cm/sec LV V1 max: 136.6 cm/sec SV(LVOT): 71.1 ml AI max P.1 mmHg LV V1 max P.5 mmHg AI dec slope: 226.2 cm/sec2 LV V1 mean P.0 mmHg AI P1/2t: 552.8 msec LV V1 mean: 94.5 cm/sec LV V1 VTI: 23.8 cm PA V2 max: 103.0 cm/sec TR max blake: 272.5 cm/sec PA V2 mean: 70.1 cm/sec TR max P.7 mmHg ECHO/Echo Complete Interpretation Summary Normal LV size. Left ventricular systolic function is normal. The estimated ejection fraction is 55 %. Mild focal aortic valve calcification. Mean aortic valve gradient 14 mmHg. Mild aortic stenosis. Compared to the previous this is unchanged. Ordering Physician: Maryjane Abbott Referring Physician: Shen Henriquez Performed By: Colleen Lee RDCS, RVT
== END | disposition home or self-care (01) ==
LOC: CVS 13:58
PROVIDERS: PCP Family Medicine; Referring Provider Physician Assistant Medical; Visit Provider Physician Assistant Medical
DX: I48.11 Longstanding persistent atrial fibrillation (principal)
CPT/HCPCS: 93306

== ENCOUNTER 2023-10-14 08:19 | Day surgery (SDC) | payer OTHER, MEDICARE, SELFPAY ==
--- NOTE | 2023-10-05 11:22 | RAD_ITS ---
STUDY: X-RAY CHEST REASON FOR EXAM: Female, 78 years old. For PPM generator change on 10/13/33 TECHNIQUE: PA and lateral views of the chest. COMPARISON: 04/22/2021 FINDINGS: Left subclavian pacemaker which is unchanged. The lungs are clear and expanded. There is no demonstrated pleural abnormality. There is moderate cardiac enlargement. Normal mediastinum and delaney. Normal visualized pulmonary arteries. Normal visualized aortic arch and descending thoracic aorta. Normal visualized thoracic spine. Normal visualized ribs, clavicles, and shoulders. There is no demonstrated abnormality of the visualized soft tissue structures of the upper abdomen. RAD/Chest PA and Lateral IMPRESSION: No active disease. Cardiomegaly. Electronically Signed: Feng Winters MD at 22:59 EST ,
[2023-10-05 11:25] LABS: Bacteria 0 SEEN /hpf (None Seen); Mucous, Urine 0 SEEN /hpf (<or=2+); Red Blood Cells-Urine 0 SEEN /hpf (0-5); White Blood Cells 0 SEEN /hpf (0-5)
[2023-10-05 11:43] LABS: Color, Urine Yellow (Yellow); Glucose, Dipstick Normal (Normal); Ketone-Dipstick Negative (Negative); Leukocyte Esterase-Dipstick 25 /ul (Negative); Nitrite-Dipstick Negative (Negative); Occult Blood-Urine Negative /ul (Negative); Protein-Dipstick Negative (Negative); Urine Bilirubin Dipstick Negative (Negative); Urine Clarity Clear (Clear); Urine Urobilinogen Normal (Normal); Urine pH 6.5 (5.0 - 8.0)
[2023-10-05 11:43] LABS: Hematocrit 37.4 % (37-47); Mean Corp Hgb Conc 32.1 g/dL (32-36); Mean Corpuscular Hgb 28.8 pg (27.0-32.0); Mean Corpuscular Volume 89.7 fL (81-99); Mean Platelet Vol. 9.5 fl (6.2-12.0); Platelet Count 358 K/mm3 (150-450); RBC Distribution Width CV 14.7 % (11.6-14.6); RBC Distribution Width SD 48.8 fl (35.1-43.9); Red Blood Count 4.17 M/mm3 (4.2-5.4); White Blood Count 12.1 K/mm3 (4.4-11.0)
[2023-10-05 12:05] LABS: International Normalized Ratio 1.8
[2023-10-05 12:16] LABS: Anion Gap 6 (5-15); BUN 15 mg/dL (7-18); BUN/Creat Ratio 20.4 RATIO (10-20); Calcium,Total 9.1 mg/dL (8.5-10.1); Chloride 103 mmol/L (98-107); Creatinine, Serum 0.74 mg/dL (0.55-1.02); EST Glomerular Filtration Rate 81 mL/min (>60); Est Glom Filt Rate - Afr Amer 98 mL/min (>60); Glucose 89 mg/dL (74-106); Potassium 3.7 mmol/L (3.5-5.1); Sodium Level 138 mmol/L (136-145)
[2023-10-05 12:34] LABS: Squamous Epithelial Cells - UA 0-5 SEEN /hpf (5-10)
[2023-10-11 08:09] VITALS: BMI 34.7
[2023-10-14 08:37] LABS: INR Fingerstick 1.2; Prothrombin Time Fingerstick 13.8 SEC (11.7-14.9)
--- NOTE | 2023-10-14 09:57 | CL.IE_ITS ---
Patient: CONOR LIM Study Date: 10/14/2023 Performing: Chetan Christianson MD : 1945 Age: 78 Gender: female PROCEDURES PERFORMED [id number]-([id number])BATTERY REMOVAL+REPLACEMENT PACER-DUAL LEAD INDICATIONS Sinoatrial node dysfunction/Sick sinus syndrome PROCEDURE DETAILS The patient was brought to the Catheterization Lab in the postabsorptive nonsedated state. Informed consent was obtained prior to the procedure. Local anesthetic was given subcutaneously to the left subclavian region with Lidocaine 2%. PPM generator was then interrogated by the computer numerical control programmer. PPM generator was removed. PPM generator was attached to the lead(s) and inserted into the pocket. PPM generator was then interrogated by the computer numerical control programmer. Device pocket was irrigated with antibiotic. Subcutaneous closure was completed with 3-0 Vicryl. Skin closure was completed with 4-0 Vicryl. Steri-strips applied to left subclavicular incision. The patient tolerated the procedure well. Estimated Blood Loss: 15 ml's IMPLANTED / EX-PLANTED DEVICES IMPLANTED DEVICE(S): PPM Generator - Locker Room Manager: [employer], Model # Assurity MRI pulse generator ref: [id number] , Serial # [id number] DEVICE PARAMETERS ATRIAL LEAD PARAMETERS: P wave- 1.4 (mV) threshold- n/a (V) impedence- 400 (OHMS) VENTRICULAR LEAD PARAMETERS: R wave- 4.5 (mV) threshold- 1.75 (V) impedence- 380 (OHMS) DEVICE PARAMETERS: Mode- DDDI Lower rate- 70 CONCLUSIONS / RECOMMENDATIONS Device Conclusions: Successful implantation of a dual chamber pacemaker battery change and replacement Device Recommendations: Follow up with Primary Care Physician PROCEDURE MEDICATIONS Versed 1 mg IV Fentanyl 50 mcg IV Oxygen: 2 L/min via nasal cannula Antibiotic given in appropriate timeframe. Ancef 2 Gm IV @ 10/14/2023 09:00:23 Signed By Chetan Christianson MD On 10/14/2023 09:57:10 Chetan Christianson MD
== END 2023-10-14 11:00 | disposition home or self-care (01) ==
LOC: CLSP 08:20
PROVIDERS: PCP Family Medicine; Referring Provider Internal Medicine Cardiovascular Disease; Visit Provider Internal Medicine Cardiovascular Disease
DX: Z45.010 Encounter for checking and testing of cardiac pacemaker pulse generator [battery] (principal); I49.5 Sick sinus syndrome; I48.0 Paroxysmal atrial fibrillation; I48.11 Longstanding persistent atrial fibrillation; C50.919 Malignant neoplasm of unspecified site of unspecified female breast; E11.9 Type 2 diabetes mellitus without complications; I10 Essential (primary) hypertension; Z79.890 Hormone replacement therapy; Z79.01 Long term (current) use of anticoagulants; Z79.899 Other long term (current) drug therapy; K21.9 Gastro-esophageal reflux disease without esophagitis; Z87.891 Personal history of nicotine dependence; E66.9 Obesity, unspecified; E78.00 Pure hypercholesterolemia, unspecified
CPT/HCPCS: 33228; 36415; 36416; 71046; 80048; 81001; 85027; 85610; 99152; 99153; J7040; J7050

== ENCOUNTER → 2023-12-11 | Outpatient (CLI) | payer OTHER, MEDICARE, SELFPAY ==
[2023-12-11 15:10] LABS: Absolute Lymphocyte Count 3.44 X10^3/uL (0.83-4.51); Absolute Neutrophil Count 5.5 X10^3/uL (2.0-7.7); Hematocrit 39.1 % (37-47); Hemoglobin 12.3 g/dL (12.0-15.0); Lymphocyte # 3.44 X10^3/ul (0.83-4.51); Lymphocyte % 33.7 % (19-41); Mean Corp Hgb Conc 31.5 g/dL (32-36); Mean Corpuscular Hgb 28.8 pg (27.0-32.0); Mean Corpuscular Volume 91.6 fL (81-99); Mean Platelet Vol. 10.6 fl (6.2-12.0); Monocyte# 0.87 X10^3/uL; Monocyte% 8.5 % (0-10); NRBC Flagged by Analyzer 0 % (0-5); Neutrophil # 5.49 X10^3/uL (2.7-7.7); Neutrophil % 53.7 % (47-70); Platelet Count 345 K/mm3 (150-450); RBC Distribution Width CV 14.6 % (11.6-14.6); RBC Distribution Width SD 48.8 fl (35.1-43.9); Red Blood Count 4.27 M/mm3 (4.2-5.4); White Blood Count 10.2 K/mm3 (4.4-11.0)
[2023-12-11 15:42] LABS: Hemoglobin A1c 6.5 % (3.8-5.6)
[2023-12-11 15:58] LABS: Anion Gap 9 (5-15); BUN 13 mg/dL (7-18); BUN/Creat Ratio 15.8 RATIO (10-20); Calcium,Total 9.3 mg/dL (8.5-10.1); Chloride 103 mmol/L (98-107); Cholesterol 147 mg/dL (200); Creatinine, Serum 0.82 mg/dL (0.55-1.02); EST Glomerular Filtration Rate 71 mL/min (>60); Est Glom Filt Rate - Afr Amer 86 mL/min (>60); Glucose 164 mg/dL (74-106); High Density Lipoprotein 37 mg/dL; Potassium 3.6 mmol/L (3.5-5.1); Sodium Level 137 mmol/L (136-145); Triglycerides 206 mg/dL; Very Low Density Lipoprotein 41 mg/dL (5-40)
== END | disposition home or self-care (01) ==
LOC: MFPLAB 12:18
PROVIDERS: PCP Family Medicine; Visit Provider Family Medicine
DX: Z01.818 Encounter for other preprocedural examination (principal)
CPT/HCPCS: 36415; 80048; 80061; 83036; 85025

== ENCOUNTER 2024-01-22 13:48 | Outpatient (RCR) | payer OTHER, MEDICARE, SELFPAY ==
[2024-01-22 15:36] LABS: Absolute Lymphocyte Count 3.27 X10^3/uL (0.83-4.51); Absolute Neutrophil Count 6.1 X10^3/uL (2.0-7.7); Basophil# 0.06 X10^3/uL; Basophil% 0.6 % (0-1); Eosinophil# 0.27 X10^3/uL; Eosinophils% 2.5 % (0-5); Hematocrit 38.4 % (37-47); Hemoglobin 12.1 g/dL (12.0-15.0); Lymphocyte # 3.27 X10^3/ul (0.83-4.51); Lymphocyte % 30.7 % (19-41); Mean Corp Hgb Conc 31.5 g/dL (32-36); Mean Corpuscular Hgb 28.7 pg (27.0-32.0); Mean Platelet Vol. 9.7 fl (6.2-12.0); Monocyte# 0.89 X10^3/uL; Monocyte% 8.3 % (0-10); NRBC Flagged by Analyzer 0 % (0-5); Neutrophil # 6.09 X10^3/uL (2.7-7.7); Neutrophil % 57.1 % (47-70); Platelet Count 339 K/mm3 (150-450); RBC Distribution Width CV 14.5 % (11.6-14.6); RBC Distribution Width SD 48.1 fl (35.1-43.9); Red Blood Count 4.22 M/mm3 (4.2-5.4); White Blood Count 10.7 K/mm3 (4.4-11.0)
[2024-01-22 16:42] LABS: Anion Gap 8 (5-15); BUN 13 mg/dL (7-18); BUN/Creat Ratio 14.8 RATIO (10-20); Calcium,Total 9.2 mg/dL (8.5-10.1); Chloride 104 mmol/L (98-107); Creatinine, Serum 0.88 mg/dL (0.55-1.02); EST Glomerular Filtration Rate 66 mL/min (>60); Est Glom Filt Rate - Afr Amer 79 mL/min (>60); Glucose 136 mg/dL (74-106); Potassium 3.7 mmol/L (3.5-5.1); Sodium Level 139 mmol/L (136-145); Thyroid Stim Hormone (TSH) 3.53 uIU/mL (0.358-3.74)
== END 2024-01-22 18:00 | disposition home or self-care (01) ==
LOC: LAB 13:48
PROVIDERS: Nurse Practitioner Gerontology; PCP Family Medicine; Referring Provider Internal Medicine Cardiovascular Disease; Visit Provider Internal Medicine Cardiovascular Disease
DX: R53.83 Other fatigue (principal)
CPT/HCPCS: 36415; 80048; 84443; 85025

== ENCOUNTER 2024-09-10 14:01 | Outpatient (RCR) | payer OTHER, MEDICARE, SELFPAY ==
[2024-09-10 14:31] LABS: INR Fingerstick 2.3; Prothrombin Time Fingerstick 23.9 SEC (11.7-14.9)
== END 2024-10-02 18:00 | disposition home or self-care (01) ==
LOC: LAB 14:01
PROVIDERS: PCP Family Medicine; Referring Provider Internal Medicine Cardiovascular Disease; Visit Provider Internal Medicine Cardiovascular Disease
DX: I48.11 Longstanding persistent atrial fibrillation (principal); Z79.01 Long term (current) use of anticoagulants
CPT/HCPCS: 36416; 85610

== ENCOUNTER 2024-10-16 06:53 | Day surgery (SDC) | payer OTHER, MEDICARE, SELFPAY ==
--- NOTE | 2024-10-15 10:56 | PAT.ANE_ITS ---
Pre-Assessment Diagnosis/Proposed Procedure Planned Operative Procedure(s): egd Anesthesia History Anesthesia History - recruiting operations consultant: Anesthesia History - recruiting operations consultant Hx Hospitalization No 10/15/24 09:06 Any Problems With Anesthesia Yes: PONV 10/15/24 09:06 Cholinesterase deficiency No 10/15/24 09:06 You/Your Family Experience No 10/15/24 09:06 fever (hyperthermia) with Relationship Recent Exposure to Contagious Disease Does patient have nerve No 10/15/24 09:06 stimulator Patient instructed to have device shut off --Does patient have Pacemaker or ICD? When Was Last Pacemaker Check 10/03/23 10/14/23 08:36 QUESTION #4 FULL TEXT: You/Your Family Experience fever (hyperthermia) with Anesthesia Last Oral Intake Last Oral intake: Last Oral Intake NPO since Meds taken in AM with sips of water? Meds patient instructed to take am of surgery PONV PONV - recruiting operations consultant: PONV - recruiting operations consultant Female Yes 10/15/24 09:06 HX of Motion Sickness Yes 10/15/24 09:06 HX of N/V After Surgery Yes 10/15/24 09:06 Non-Smoker Yes 10/15/24 09:06 Duration of Surgery greater No 10/15/24 09:06 than 60 minutes Number of Risk Factors 4 10/15/24 09:06 PONV Score Severe Risk 10/15/24 09:06 Height & Weight Height & Weight: Anesthesia: Height & Weight Height 5 ft 2.5 in 09/09/24 14:33 Respiratory Assessment Respiratory Assessment - recruiting operations consultant: Respiratory Tract Infection Hx - recruiting operations consultant Hx Respiratory Tract Infection No 10/15/24 09:06 STOP Sleep Apnea STOP Sleep Apnea - recruiting operations consultant: STOP Sleep Apnea - recruiting operations consultant Hx Hypertension Yes: CONTROLLED WITH MED 10/15/24 09:06 Hx Sleep Apnea No 10/15/24 09:06 CPAP BIPAP Do you snore loudly (louder No 10/15/24 09:06 than talking or can be heard Do you often feel tired/ No 10/15/24 09:06 fatigued/ sleepy during daytime? Has anyone observed you stop No 10/15/24 09:06 breathing during sleep? STOP Results Negative 10/15/24 09:06 QUESTION #5 FULL TEXT : Do you snore loudly (louder than talking or can be heard through closed doors)? 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 Specify any problems Hx of Preganancy in last 3 N/A 10/15/24 09:06 Months Nurse Filling Out Transfusion NBUCHER 10/15/24 09:06 & Questions: Date: 10/15/24 10/15/24 09:06 Time: 09:08 10/15/24 09:06 Patient unable to answer at this time (ie. confused, unrespo /Reproduction History /Reproductive History - recruiting operations consultant: /Reproductive Hx- recruiting operations consultant Hx Now No 10/15/24 09:06 Gestational Age (in weeks): EDC: Hx Hx Para Hx Section SAB No 10/15/24 09:06 PFSH Medical History Wears glasses Post-menopausal Cancer Hypothyroid Thyroid disease Diabetes High cholesterol History of edema Leg cramps Former smoker History of echocardiogram History of atrial fibrillation Cardiology follow-up encounter History of pacemaker PONV (postoperative nausea and vomiting) Neurological movement disorder Longstanding persistent atrial fibrillation Parathyroid disease Breast cancer Sick sinus syndrome Essential hypertension Type 2 diabetes mellitus without complication History 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 hernia retirement current use of anticoagulant Presence of cardiac pacemaker (04/07/14) AV node dysfunction GERD (gastroesophageal reflux disease) Osteoporosis Arthritis Breast carcinoma Benign essential blepharospasm Hyperlipidemia Home Medications ?Medication ?Instructions ?Recorded ?Last Taken ?Type diazepam 5 mg tablet 5 mg PO PRN PRN Spasms 04/0603/23/15 07:00 History calcium 315 mg (as 1 ea PO DAILY 03/16/15 Unkno wn History citrate)-vitamin D3 5 mcg (200 unit) tablet cholecalciferol (vitamin D3) 1,250 50,000 unit PO QDAY 08/07/17 Unknown History mcg (50,000 unit) capsule lactobacillus combination no.8 3 3,000 mmu cells PO QD AY 09/13/17 Unknown History billion cell capsule (Adult Probiotic) FreeStyle Lite Strips (blood sugar #100 ea 10/30/17 Un known Rx diagnostic) metformin 500 mg tablet 500 mg PO BID #60 tabs 11/0410/13/23 Rx levothyroxine 25 mcg tablet 25 mcg PO DAILY #30 tabs 0 08/20/18 10/14/23 Rx lansoprazole 30 mg capsule,delayed 30 mg PO DAILY #90 ea 04/30/20 Unknown Rx release ezetimibe 10 mg tablet See Rx Instructions .Route 1 09/02/20 Unknown Rx .COMPLEX #90 tabs warfarin 3 mg tablet See Rx Instructions PO .COMP MARIBEL 10/10/23 10/10/24 Rx #135 tabs potassium chloride 20 mEq 20 meq PO DAILY #90 tabs Unknown Rx tablet,extended release(part/cryst) furosemide 40 mg tablet 40 mg PO DAILY #90 tabs 08/28 Unknown Rx digoxin 125 mcg (0.125 mg) tablet 125 mcg PO DAILY #90 tabs 07/13/24 Unknown Rx clobetasol 0.05 % topical cream 1 applic topical QDAY PRN rash 09/09/24 Unknown History denosumab 60 mg/mL subcutaneous 60 mg subcut [id number] 09/09/24 Unknown History syringe (Prolia) multivitamin 1 tab PO QAM 09/09/24 Unknow n History super beets PO 09/09/24 Unknown History vitamin B complex 1 tab PO QDAY 09/09/24 Unkno wn History verapamil 300 mg capsule 24hr 300 mg PO QHS 10/15/24 U nknown History pellet CT,ext.release Allergy/AdvReac Type Severity Reaction Status Date / Time codeine Allergy Unknown Verified 10/15/24 09:00 sertraline Allergy Unknown Verified 10/15/24 09:00 Family History Mother Hypertension CHF (congestive heart failure) Father Lung cancer Skin cancer Son Afib Diabetes Hypertension Sister Hypertension Surgical History (Updated 10/15/24 @ 09:16 by Denise Le) History of cataract extraction with lens replacement History of blepharoplasty History of colonoscopy (2016) History of lymph node dissection of left axilla (2017) Status post left breast lumpectomy (2017) Status post right breast lumpectomy History of parathyroidectomy brow lift H/O sinus surgery History of section Social History Smoking Status: Former smoker how long ago did patient quit smokin second hand exposure: No alcohol intake: never substance use type: does not use what type of physical activity do you participate in: none
--- NOTE | 2024-10-15 10:56 | PAT.ANE_ITS ---
Pre-Assessment Diagnosis/Proposed Procedure Planned Operative Procedure(s): egd Anesthesia History Anesthesia History - clearance rep: Anesthesia History - clearance rep Hx Hospitalization No 10/15/24 09:06 Any Problems With Anesthesia Yes: PONV 10/15/24 09:06 Cholinesterase deficiency No 10/15/24 09:06 You/Your Family Experience No 10/15/24 09:06 fever (hyperthermia) with Relationship Recent Exposure to Contagious Disease Does patient have nerve No 10/15/24 09:06 stimulator Patient instructed to have device shut off --Does patient have Pacemaker or ICD? When Was Last Pacemaker Check 10/03/23 10/14/23 08:36 QUESTION #4 FULL TEXT: You/Your Family Experience fever (hyperthermia) with Anesthesia Last Oral Intake Last Oral intake: Last Oral Intake NPO since Meds taken in AM with sips of water? Meds patient instructed to take am of surgery PONV PONV - clearance rep: PONV - clearance rep Female Yes 10/15/24 09:06 HX of Motion Sickness Yes 10/15/24 09:06 HX of N/V After Surgery Yes 10/15/24 09:06 Non-Smoker Yes 10/15/24 09:06 Duration of Surgery greater No 10/15/24 09:06 than 60 minutes Number of Risk Factors 4 10/15/24 09:06 PONV Score Severe Risk 10/15/24 09:06 Height & Weight Height & Weight: Anesthesia: Height & Weight Height 5 ft 2.5 in 09/09/24 14:33 Respiratory Assessment Respiratory Assessment - clearance rep: Respiratory Tract Infection Hx - clearance rep Hx Respiratory Tract Infection No 10/15/24 09:06 STOP Sleep Apnea STOP Sleep Apnea - clearance rep: STOP Sleep Apnea - clearance rep Hx Hypertension Yes: CONTROLLED WITH MED 10/15/24 09:06 Hx Sleep Apnea No 10/15/24 09:06 CPAP BIPAP Do you snore loudly (louder No 10/15/24 09:06 than talking or can be heard Do you often feel tired/ No 10/15/24 09:06 fatigued/ sleepy during daytime? Has anyone observed you stop No 10/15/24 09:06 breathing during sleep? STOP Results Negative 10/15/24 09:06 QUESTION #5 FULL TEXT : Do you snore loudly (louder than talking or can be heard through closed doors)? 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 Specify any problems Hx of Preganancy in last 3 N/A 10/15/24 09:06 Months Nurse Filling Out Transfusion [facility]BU[facility] 10/15/24 09:06 & Questions: Date: 10/15/24 10/15/24 09:06 Time: 09:08 10/15/24 09:06 Patient unable to answer at this time (ie. confused, unrespo /Reproduction History /Reproductive History - clearance rep: /Reproductive Hx- clearance rep Hx Now No 10/15/24 09:06 Gestational Age (in weeks): EDC: Hx Hx Para Hx Section SAB No 10/15/24 09:06 PFSH Medical History Wears glasses Post-menopausal Cancer Hypothyroid Thyroid disease Diabetes High cholesterol History of edema Leg cramps Former smoker History of echocardiogram History of atrial fibrillation Cardiology follow-up encounter History of pacemaker PONV (postoperative nausea and vomiting) Neurological movement disorder Longstanding persistent atrial fibrillation Parathyroid disease Breast cancer Sick sinus syndrome Essential hypertension Type 2 diabetes mellitus without complication History 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 hernia retirement current use of anticoagulant Presence of cardiac pacemaker (04/07/14) AV node dysfunction GERD (gastroesophageal reflux disease) Osteoporosis Arthritis Breast carcinoma Benign essential blepharospasm Hyperlipidemia Home Medications ?Medication ?Instructions ?Recorded ?Last Taken ?Type diazepam 5 mg tablet 5 mg PO PRN PRN Spasms 04/0603/23/15 07:00 History calcium 315 mg (as 1 ea PO DAILY 03/16/15 Unkno wn History citrate)-vitamin D3 5 mcg (200 unit) tablet cholecalciferol (vitamin D3) 1,250 50,000 unit PO QDAY 08/07/17 Unknown History mcg (50,000 unit) capsule lactobacillus combination no.8 3 3,000 mmu cells PO QD AY 09/13/17 Unknown History billion cell capsule (Adult Probiotic) FreeStyle Lite Strips (blood sugar #100 ea 10/30/17 Un known Rx diagnostic) metformin 500 mg tablet 500 mg PO BID #60 tabs 11/0410/13/23 Rx levothyroxine 25 mcg tablet 25 mcg PO DAILY #30 tabs 0 08/20/18 10/14/23 Rx lansoprazole 30 mg capsule,delayed 30 mg PO DAILY #90 ea 04/30/20 Unknown Rx release ezetimibe 10 mg tablet See Rx Instructions .Route 1 09/02/20 Unknown Rx .COMPLEX #90 tabs warfarin 3 mg tablet See Rx Instructions PO .COMP MARIBEL 10/10/23 10/10/24 Rx #135 tabs potassium chloride 20 mEq 20 meq PO DAILY #90 tabs Unknown Rx tablet,extended release(part/cryst) furosemide 40 mg tablet 40 mg PO DAILY #90 tabs 08/28 Unknown Rx digoxin 125 mcg (0.125 mg) tablet 125 mcg PO DAILY #90 tabs 07/13/24 Unknown Rx clobetasol 0.05 % topical cream 1 applic topical QDAY PRN rash 09/09/24 Unknown History denosumab 60 mg/mL subcutaneous 60 mg subcut [id number] 09/09/24 Unknown History syringe (Prolia) multivitamin 1 tab PO QAM 09/09/24 Unknow n History super beets PO 09/09/24 Unknown History vitamin B complex 1 tab PO QDAY 09/09/24 Unkno wn History verapamil 300 mg capsule 24hr 300 mg PO QHS 10/15/24 U nknown History pellet CT,ext.release Allergy/AdvReac Type Severity Reaction Status Date / Time codeine Allergy Unknown Verified 10/15/24 09:00 sertraline Allergy Unknown Verified 10/15/24 09:00 Family History Mother Hypertension CHF (congestive heart failure) Father Lung cancer Skin cancer Son Afib Diabetes Hypertension Sister Hypertension Surgical History (Updated 10/15/24 @ 09:16 by Denise Le) History of cataract extraction with lens replacement History of blepharoplasty History of colonoscopy (2017) History of lymph node dissection of left axilla (2017) Status post left breast lumpectomy (2017) Status post right breast lumpectomy History of parathyroidectomy brow lift H/O sinus surgery History of section Social History Smoking Status: Former smoker how long ago did patient quit smokin second hand exposure: No alcohol intake: never substance use type: does not use what type of physical activity do you participate in: none Addt'l Information Additional Findings: She does have a history of hypertension, hyperlipidemia, AV nanette disease with pacemaker placement, paroxysmal atrial fibrillation. As you know she has unfortunately been diagnosed with breast carcinoma for which she is received anastrazole. Audit: Pertinent Findings Pertinent Findings EKG Perinent findings: Atrial fibrillation Low voltage in precordial leads Echo (EF%) pertinent findings: Normal LV size. Left ventricular systolic function is normal. The estimated ejection fraction is 55 %. Mild focal aortic valve calcification. Mean aortic valve gradient 14 mmHg. Mild aortic stenosis. Compared to the previous this is unchanged. Additional pertinent findings: Patient has a pacemaker for Afib. Underlying heart rhythm is Afib. Pacer is DDI. Recommendation Anesthesia Recommendation Anesthesia recommendation: F/U recommended (Cardiac clearance needed. Patient has pacer for Afib, it is operating in DDI mode, and patient is chronically in Afib. Since this is an EGD, pacemaker can remain on and no intervention should be needed, but patient should f/u with cardiology and have a clearance done )
[2024-10-16 07:00] LABS: INR Fingerstick 1.3
--- NOTE | 2024-10-16 07:19 | PCM.PRE.AN2 ---
ASA Classification* ASA Classification ASA Classification: 3 Assessment & Plan Anesthesia* Anesthesia Assessment Anesthesia Assessment: Discussed sedation and/or anesthesia options, risks, benefits, and alternatives with patient/parents/legal guardian/POA. Questions invited. The patient/parents/legal guardian/POA seems to understand and agrees to proceed with anesthesia plan. Reviewed the physical assessment, medical history, allergy history and patient home medications list prior to surgery/procedure/anesthetic and documented any changes. Performed airway and anesthesia risk assessments. Anesthesia Type Anesthesia Type: MAC Anesthesia Focused Assessment* Airway Assessment Mouth opens: >3 cm Mallampati Score: II Focused Labs Anesthesia Preop lab: CBC WBC 10.7 K/mm3 (4.4-11.0) 01/22/24 14:28 01/22/24 RBC 4.22 M/mm3 (4.2-5.4) 01/22/24 14:28 01/22/24 Hgb 12.1 g/dL (12.0-15.0) 01/22/24 14:28 01/22/24 Hct 38.4 % (37-47) 01/22/24 14:28 01/22/24 Plt Count 339 K/mm3 (150-450) 01/22/24 14:28 01/22/24 CHEMISTRY Potassium 3.7 mmol/L (3.5-5.1) 01/22/24 14:28 01/22/24 Sodium 139 mmol/L (136-145) 01/22/24 14:28 01/22/24 BUN 13 mg/dL (7-18) 01/22/24 14:28 01/22/24 Creatinine 0.88 mg/dL (0.55-1.02) 01/22/24 14:28 01/22/24 Glucose 136 mg/dL (74-106) H 01/22/24 14:28 01/22/24 POC Glucose 112 mg/dL (70-110) H 03/23/15 12:36 03/23/15 TSH 3.53 uIU/mL (0.358-3.74) 01/22/24 14:28 01/22/24 COAG PT 21.0 SECONDS (11.7-14.9) H 10/05/23 11:06 10/05/23 INR 3.3 H 03/18/23 15:30 03/18/23 Pre-Assessment Diagnosis/Proposed Procedure Planned Operative Procedure(s): egd Anesthesia History Anesthesia History - product safety officer: Anesthesia History - product safety officer Hx Hospitalization No 10/15/24 09:06 Any Problems With Anesthesia Yes: PONV 10/15/24 09:06 Cholinesterase deficiency No 10/15/24 09:06 You/Your Family Experience No 10/15/24 09:06 fever (hyperthermia) with Relationship Recent Exposure to Contagious Disease Does patient have nerve No 10/15/24 09:06 stimulator Patient instructed to have device shut off --Does patient have Pacemaker or ICD? When Was Last Pacemaker Check 10/03/23 10/14/23 08:36 QUESTION #4 FULL TEXT: You/Your Family Experience fever (hyperthermia) with Anesthesia Last Oral Intake Last Oral intake: Last Oral Intake NPO since Meds taken in AM with sips of water? Meds patient instructed to take am of surgery PONV PONV - product safety officer: PONV - product safety officer Female Yes 10/15/24 09:06 HX of Motion Sickness Yes 10/15/24 09:06 HX of N/V After Surgery Yes 10/15/24 09:06 Non-Smoker Yes 10/15/24 09:06 Duration of Surgery greater No 10/15/24 09:06 than 60 minutes Number of Risk Factors 4 10/15/24 09:06 PONV Score Severe Risk 10/15/24 09:06 Height & Weight Height & Weight: Anesthesia: Height & Weight Height 5 ft 2.5 in 09/09/24 14:33 Respiratory Assessment Respiratory Assessment - product safety officer: Respiratory Tract Infection Hx - product safety officer Hx Respiratory Tract Infection No 10/15/24 09:06 STOP Sleep Apnea STOP Sleep Apnea - product safety officer: STOP Sleep Apnea - product safety officer Hx Hypertension Yes: CONTROLLED WITH MED 10/15/24 09:06 Hx Sleep Apnea No 10/15/24 09:06 CPAP BIPAP Do you snore loudly (louder No 10/15/24 09:06 than talking or can be heard Do you often feel tired/ No 10/15/24 09:06 fatigued/ sleepy during daytime? Has anyone observed you stop No 10/15/24 09:06 breathing during sleep? STOP Results Negative 10/15/24 09:06 QUESTION #5 FULL TEXT : Do you snore loudly (louder than talking or can be heard through closed doors)? 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 Specify any problems Hx of Preganancy in last 3 N/A 10/15/24 09:06 Months Nurse Filling Out Transfusion NBUCHER 10/15/24 09:06 & Questions: Date: 10/15/24 10/15/24 09:06 Time: 09:08 10/15/24 09:06 Patient unable to answer at this time (ie. confused, unrespo /Reproduction History /Reproductive History - product safety officer: /Reproductive Hx- product safety officer Hx Now No 10/15/24 09:06 Gestational Age (in weeks): EDC: Hx Hx Para Hx Section SAB No 10/15/24 09:06 PFSH Medical History Wears glasses Post-menopausal Cancer Hypothyroid Thyroid disease Diabetes High cholesterol History of edema Leg cramps Former smoker History of echocardiogram History of atrial fibrillation Cardiology follow-up encounter History of pacemaker PONV (postoperative nausea and vomiting) Neurological movement disorder Longstanding persistent atrial fibrillation Parathyroid disease Breast cancer Sick sinus syndrome Essential hypertension Type 2 diabetes mellitus without complication History 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 hernia medical 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8 3 3,000 mmu cells PO QDAY 09/13/17 Unknown History billion cell capsule (Adult Probiotic) FreeStyle Lite Strips (blood sugar #100 ea 10/30/17 Unknown Rx diagnostic) metformin 500 mg tablet 500 mg PO BID #60 tabs 11/04/17 10/13/23 Rx levothyroxine 25 mcg tablet 25 mcg PO DAILY #30 tabs 08/20/18 10/14/23 Rx lansoprazole 30 mg capsule,delayed 30 mg PO DAILY #90 ea 04/30/20 Unknown Rx release ezetimibe 10 mg tablet See Rx Instructions .Route 07/03/21 Unknown Rx .COMPLEX #90 tabs warfarin 3 mg tablet See Rx Instructions PO .COMPLEX 10/10/23 10/10/24 Rx #135 tabs potassium chloride 20 mEq 20 meq PO DAILY #90 tabs 12/03/23 Unknown Rx tablet,extended release(part/cryst) furosemide 40 mg tablet 40 mg PO DAILY #90 tabs 02/03/24 Unknown Rx digoxin 125 mcg (0.125 mg) tablet 125 mcg PO DAILY #90 tabs 07/13/24 Unknown Rx clobetasol 0.05 % topical cream 1 applic topical QDAY PRN rash 09/09/24 Unknown History denosumab 60 mg/mL subcutaneous 60 mg subcut [id number] 09/09/24 Unknown History syringe (Prolia) multivitamin 1 tab PO QAM 09/09/24 Unknown History super beets PO 09/09/24 Unknown History vitamin B complex 1 tab PO QDAY 09/09/24 Unknown History verapamil 300 mg capsule 24hr 300 mg PO QHS 10/15/[address],ext.release Allergy/AdvReac Type Severity Reaction Status Date / Time codeine Allergy Unknown Verified 10/16/24 07:19 sertraline Allergy Unknown Verified 10/16/24 07:19 Family History Mother Hypertension CHF (congestive heart failure) Father Lung cancer Skin cancer Son Afib Diabetes Hypertension Sister Hypertension Surgical History History of cataract extraction with lens replacement History of blepharoplasty History of colonoscopy (2016) History of lymph node dissection of left axilla (2017) Status post left breast lumpectomy (2017) Status post right breast lumpectomy History of parathyroidectomy brow lift H/O sinus surgery History of section Social History Smoking Status: Former smoker how long ago did patient quit smokin second hand exposure: No alcohol intake: never substance use type: does not use what type of physical activity do you participate in: none Review of Systems (Anesthesia) ROS Narrative System reviewed and no additional complaints, except as documented.
[2024-10-16 07:24] VITALS: BP 145/60; PULSE 73; RESP 18; TEMP 36.7; O2SAT 97; BMI 35.9
--- NOTE | 2024-10-16 07:27 | PCM.HP.BLA ---
History and Physical Date of Admission: 10/16/24 Intake Chief Complaint: c-scope Allergies codeine Allergy (Verified 09/09/24 14:33) Unknownsertraline Allergy (Verified 09/09/24 14:33) Unknown Medications ?Medication ?Instructions ?Recorded ?Confirmed ?Type diazepam 5 mg tablet 5 mg PO PRN PRN Spasms 04/06/14 09/09/24 History calcium 315 mg (as 1 ea PO DAILY 03/16/15 09/09/24 History citrate)-vitamin D3 5 mcg (200 unit) tablet cholecalciferol (vitamin D3) 1,250 50,000 unit PO QDAY 08/07/17 09/09/24 History mcg (50,000 unit) capsule lactobacillus combination no.8 3 3,000 mmu cells PO QDAY 09/13/17 09/09/24 History billion cell capsule (Adult Probiotic) FreeStyle Lite Strips (blood sugar #100 ea 10/30/17 01/22/24 Rx diagnostic) metformin 500 mg tablet 500 mg PO BID #60 tabs 11/04/17 09/09/24 Rx levothyroxine 25 mcg tablet 25 mcg PO DAILY #30 tabs 08/20/18 09/09/24 Rx lansoprazole 30 mg capsule,delayed 30 mg PO DAILY #90 ea 04/30/20 09/09/24 Rx release ezetimibe 10 mg tablet See Rx Instructions .Route 07/03/21 09/09/24 Rx .COMPLEX #90 tabs warfarin 3 mg tablet See Rx Instructions PO .COMPLEX 10/10/23 09/09/24 Rx #135 tabs potassium chloride 20 mEq 20 meq PO DAILY #90 tabs 12/03/23 09/09/24 Rx tablet,extended release(part/cryst) verapamil 300 mg capsule 24hr 300 mg PO DAILY #90 caps 12/23/23 09/09/[address],ext.release furosemide 40 mg tablet 40 mg PO DAILY #90 tabs 02/03/24 09/09/24 Rx digoxin 125 mcg (0.125 mg) tablet 125 mcg PO DAILY #90 tabs 07/13/24 09/09/24 Rx clobetasol 0.05 % topical cream 1 applic topical QDAY 09/09/24 09/09/24 History cyclobenzaprine 5 mg tablet 5 mg PO TID PRN 09/09/24 09/09/24 History denosumab 60 mg/mL subcutaneous 60 mg subcut [id number] 09/09/24 09/09/24 History syringe (Prolia) multivitamin 1 tab PO QAM 09/09/24 09/09/24 History super beets PO 09/09/24 History vitamin B complex 1 tab PO QDAY 09/09/24 09/09/24 History Assessment and Plan Assessment and Plan (1) Dysphagia: Status: Acute Plan: Patient will hold her Coumadin for 5 days prior to the procedure. Orders: Orders EGD Today 09/09/24 1503 <Electronically signed by Louis Kessler MD> Date Louis Kessler MD cc: Dr. 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 Required: No Is patient in pain?: No Allergies codeine Allergy (Verified 09/09/24 14:33) Unknownsertraline Allergy (Verified 09/09/24 14:33) Unknown Medications ?Medication ?Instructions ?Recorded ?Confirmed ?Type diazepam 5 mg tablet 5 mg PO PRN PRN Spasms 04/06/14 09/09/24 History calcium 315 mg (as 1 ea PO DAILY 03/16/15 09/09/24 History citrate)-vitamin D3 5 mcg (200 unit) tablet cholecalciferol (vitamin D3) 1,250 50,000 unit PO QDAY 08/07/17 09/09/24 History mcg (50,000 unit) capsule lactobacillus combination no.8 3 3,000 mmu cells PO QDAY 09/13/17 09/09/24 History billion cell capsule (Adult Probiotic) FreeStyle Lite Strips (blood sugar #100 ea 10/30/17 01/22/24 Rx diagnostic) metformin 500 mg tablet 500 mg PO BID #60 tabs 11/04/17 09/09/24 Rx levothyroxine 25 mcg tablet 25 mcg PO DAILY #30 tabs 08/20/18 09/09/24 Rx lansoprazole 30 mg capsule,delayed 30 mg PO DAILY #90 ea 04/30/20 09/09/24 Rx release ezetimibe 10 mg tablet See Rx Instructions .Route 07/03/21 09/09/24 Rx .COMPLEX #90 tabs warfarin 3 mg tablet See Rx Instructions PO .COMPLEX 10/10/23 09/09/24 Rx #135 tabs potassium chloride 20 mEq 20 meq PO DAILY #90 tabs 12/03/23 09/09/24 Rx tablet,extended release(part/cryst) verapamil 300 mg capsule 24hr 300 mg PO DAILY #90 caps 12/23/23 09/09/[address],ext.release furosemide 40 mg tablet 40 mg PO DAILY #90 tabs 02/03/24 09/09/24 Rx digoxin 125 mcg (0.125 mg) tablet 125 mcg PO DAILY #90 tabs 07/13/24 09/09/24 Rx clobetasol 0.05 % topical cream 1 applic topical QDAY 09/09/24 09/09/24 History cyclobenzaprine 5 mg tablet 5 mg PO TID PRN 09/09/24 09/09/24 History denosumab 60 mg/mL subcutaneous 60 mg subcut [id number] 09/09/24 09/09/24 History syringe (Prolia) multivitamin 1 tab PO QAM 09/09/24 09/09/24 History super beets PO 09/09/24 History vitamin B complex 1 tab PO QDAY 09/09/24 09/09/24 History Have you fallen in the past year?: No PFSH Medical History Neurological movement disorder Longstanding persistent atrial fibrillation Parathyroid disease Breast cancer Sick sinus syndrome Essential hypertension Type 2 diabetes mellitus without complication History 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 Presence of cardiac pacemaker (04/07/14) AV node dysfunction GERD (gastroesophageal reflux disease) Osteoporosis Arthritis Breast carcinoma Benign essential blepharospasm Hyperlipidemia Surgical History History of colonoscopy (2016) History of lymph node dissection of left axilla (2017) Status post left breast lumpectomy (2017) Status post right breast lumpectomy History of parathyroidectomy brow lift H/O sinus surgery History of section Family History Mother Hypertension CHF (congestive heart failure)Father Lung cancer Skin cancerSon Afib Diabetes HypertensionSister Hypertension Social History Smoking Status: Former smoker how long ago did patient quit smokin second hand exposure: No alcohol intake: never substance use type: does not use what type of physical activity do you participate in: none HPI HPI HPI: Patient is an 79-year-old female here for dysphagia. Patient reports she has difficulty swallowing rice and bread and feeling like it gets stuck in her esophagus. She was also sent here for screening colonoscopy but she is 79 years old. She reports that her last colonoscopy was in 2014. She denies blood in the stool or abdominal pain. ROS General General: Yes breast cancer; No weight change, appetite, fatigue, colon cancer or weakness HEENT HEENT: Yes difficulty swallowing, eye injury and eye surgery; No swollen glands or hoarseness Endo Endocrine: Yes diabetes mellitus; No thyroid disease, thyroid cancer, Hair loss, heat intolerance or cold intolerance Skin Skin: No rash or changing moles Breast Breast: No left breast lump, right breast lump, nipple discharge, breast pain, abnormal mammogram, abnormal US or breast enlargement Musc Musculoskeletal: Yes back problems and arthritis; No rheumatoid arthritis, gout or joint pain Cardio Cardiovascular: Yes pacemaker, heart disease, atrial fibrillation and high blood pressure; No murmur, heart attack, heart stent, palpitations, shortness of breat with exertion or chest pain Psych Psychiatric: Yes depression and anxiety; No hearing voices Resp Respiratory: No shortness of breath, No sleep apnea, No cough, No COPD, No asthma, No emphysema and No wheezing Gastro Gastrointestinal: Yes abdominal pain, No nausea or vomiting, No diarrhea, No constipation, No blood in stool, Yes acid reflux, Yes hemorrhoids, No ulcers, Yes gallbladder problem and No black,tarry stools Marvin Hematologic: Yes blood thinners, No blood disorders, Yes bleeding, No anemia and No blood clots Neuro Neurologic: No system reviewed and no additional complaints, except as documented, No as per HPI, No abnormal gait, No abnormal hearing, No abnormal movements, No abnormal speech, No behavioral changes, No burning sensations, No confusion, No convulsions, No disequilibrium, No dizziness, No localized weakness, No frequent falls, No headache(s), No lack of coordination, No loss of vision, No memory loss, Yes numbness, No other visual disturbances, No radicular pain, No restless legs, No sensory deficit, No syncope, Yes tingling, No tremor(s), No weakness and No other Exam Const General: cooperative Orientation: alert and oriented x3 HENRI Head: normal to inspection Neck Neck: normal visual inspection and full ROM Chest Chest palpation & inspection: normal inspection of the chest Resp Effort & Inspection: normal respiratory effort Auscultation: clear to auscultation bilaterally Cardio Rate: regular rate Rhythm: regular rhythm GI Inspection: non-distended Palpation: soft and nontender Skin General: no rashes or lesions noted Neuro General: patient alert and patient oriented x3 Extrem General: full ROM Psych Appearance: grossly normal Mental Status: mental status grossly normal Assessment and Plan Assessment and Plan (1) Dysphagia: Status: Acute Plan: Patient is due for colonoscopy but I believe she does not need a more screening colonoscopies as she is 79 years old. She is not complaining of any abdominal pain or blood in the stool. She is complaining of dysphagia especially with bread and rice. I discussed performing EGD to evaluate. I discussed possible dilation. The patient is interested in this. She is agreeable to not having a colonoscopy. I explained endoscopy in detail to the patient. I explained the risks including but not limited to stroke or heart attack with anesthesia, perforation of the GI tract, bleeding, infection. I explained that any of these could necessitate further emergency surgery. The patient understands and all questions were answered sufficiently. The patient wishes to proceed with procedure. Louis Kessler MD Pager: [facility] [address] [place] [address], [address] [place] [address] Office: I have examined the patient and the H&P has been reviewed. There are no clinical changes since date of exam.
[2024-10-16 08:22] LABS: Bedside Glucose 115 mg/dL (74-106)
--- NOTE | 2024-10-16 08:38 | OP.CCLET_ITS ---
10/16/2024 Shen Henriquez MD [address] [place] [address] Re : Upper GI endoscopy procedure for Kera Cottrell Dear Dr. Henriquez This procedure was performed on Wednesday, October 16, 2024. My impressions and recommendations are as follows: Impressions : - Normal esophagus. - Normal stomach. - Normal examined duodenum. - No specimens collected. Recommendations : - Discharge patient to home. - Resume previous diet. - Continue present medications. My findings are described in the full procedure note, which is enclosed. If I can be of further assistance, please feel free to contact me at Doctor phone number(s): , Work: . Sincerely, Louis Kessler MD 10/16/2024 8:37:49 AM This report has been signed electronically.
--- NOTE | 2024-10-16 08:38 | OP.EGD_ITS ---
Patient Name: Kera Cottrell Procedure Date: 10/16/2024 8:25 AM Date of : 1945 Age: 79 Procedure: Upper GI endoscopy Indications: Dysphagia Providers: Louis Kessler MD Referring MD: Shen Henriquez MD Medicines: Propofol per Anesthesia Patient Profile: This is an 79 year old female. Refer to note in patient chart for documentation of history and physical. Complications: No immediate complications. Procedure: Pre-Anesthesia Assessment: - Prior to the procedure, a History and Physical was performed, and patient medications and allergies were reviewed. The patient's tolerance of previous anesthesia was also reviewed. The risks and benefits of the procedure and the sedation options and risks were discussed with the patient. All questions were answered, and informed consent was obtained. Prior Anticoagulants: The patient has taken no anticoagulant or antiplatelet agents. After reviewing the risks and benefits, the patient was deemed in satisfactory condition to undergo the procedure. After obtaining informed consent, the endoscope was passed under direct vision. Throughout the procedure, the patient's blood pressure, pulse, and oxygen saturations were monitored continuously. The gastroscope was introduced through the mouth, and advanced to the second part of duodenum. The upper GI endoscopy was accomplished without difficulty. The patient tolerated the procedure well. Scope In: 8:33:30 AM Scope Out: 8:35:48 AM Total Procedure Duration Time 0 hours 2 minutes 18 seconds Findings: The esophagus was normal. The stomach was normal. The examined duodenum was normal. Impression: - Normal esophagus. - Normal stomach. - Normal examined duodenum. - No specimens collected. Recommendation: - Discharge patient to home. - Resume previous diet. - Continue present medications. Procedure Code(s): --- Professional --- 39344, Esophagogastroduodenoscopy, flexible, transoral; diagnostic, including collection of specimen(s) by brushing or washing, when performed (separate procedure) Diagnosis Code(s): --- Professional --- R13.10, Dysphagia, unspecified CPT copyright 2021 [employer]. All rights reserved. The codes documented in this report are preliminary and upon spring coverer review may be revised to meet current compliance requirements. Louis Kessler MD 10/16/2024 8:37:49 AM This report has been signed electronically. Number of Addenda: 0 Note Initiated On: 10/16/2024 8:25 AM
[2024-10-16 08:40] VITALS: BP 125/67; BP 145/60; PULSE 78; RESP 16; TEMP 36.4; O2SAT 95
[2024-10-16 08:44] VITALS: BP 125/67; PULSE 72; RESP 16; TEMP 36.4; O2SAT 96
--- NOTE | 2024-10-16 08:44 | PCM.POST.ANE ---
Anesthesia: Postop Eval I Current Vital Signs Temperature: 97.5 F Pulse Rate: 72 Blood Pressure: 125/67 Respiratory Rate: 16 Pulse Ox: 96 Oxygen Delivery Method: Room Air Assessment Airway patent: Yes Spontaneous unlabored respirations: Yes Mental status: Awake and Calm nausea: No Vomiting: No Anesthesia Complication: No Fluid Hydration Crystalloid volume administer (ml): 30 Total IV fluid infused: 30 Progress Note Anesthesia document: Postop Eval 1 completed: Yes
[2024-10-16 08:45] VITALS: BP 119/70; BP 145/60; PULSE 74; RESP 16; O2SAT 93
[2024-10-16 08:50] VITALS: BP 115/55; BP 145/60; PULSE 71; RESP 16; TEMP 36.4; O2SAT 93
[2024-10-16 09:07] VITALS: BP 145/60
--- NOTE | 2024-10-16 09:33 | PCM.POSTANE2 ---
Anesthesia Postop Eval I Sum Postop Eval Completion status Anesthesia document: Postop Eval 1 completed: Yes Anesthesia Postop Eval I Summary Anesthesia Postop Eval I Summary: Anesthesia Postop Eval I: Assessment Summary Airway patent Yes 10/16/24 08:44 [email or web address] Spontaneous unlabored Yes 10/16/24 08:44 [email or web address] respirations Mental status Awake,Calm 10/16/24 08:44 [email or web address] nausea No 10/16/24 08:44 [email or web address] Vomiting No 10/16/24 08:44 [email or web address] Anesthesia Postop Eval I: Fluid Summary Crystalloid volume administer 30 10/16/24 08:44 [email or web address] (ml) Colloids volume administered ( ml) Blood Product volume administered (ml) Total IV fluid infused 30 10/16/24 08:44 [email or web address] Anesthesia Postop Eval I: Summary Notes Anesthesia Complication No 10/16/24 08:44 [email or web address] Anesthesia Complication Comment: Post-operative progress note Anesthesia: Postop Eval II Evaluation Mental status: Awake Pain Level: 0 nausea: No Vomiting: No
== END 2024-10-16 09:32 | disposition home or self-care (01) ==
LOC: EN 06:53 → AC 06:55
PROVIDERS: PCP Family Medicine; Referring Provider Family Medicine; Visit Provider Surgery
PROC: 0DJ08ZZ Inspection of Upper Intestinal Tract, Via Natural or Artificial Opening Endoscopic (ICD-10-PCS; CPT 43235; principal; 2024-10-16 07:55)
DX: R13.10 Dysphagia, unspecified (principal); I48.11 Longstanding persistent atrial fibrillation; E11.9 Type 2 diabetes mellitus without complications; I10 Essential (primary) hypertension; Z87.891 Personal history of nicotine dependence; K21.9 Gastro-esophageal reflux disease without esophagitis; Z95.0 Presence of cardiac pacemaker; Z79.01 Long term (current) use of anticoagulants; E78.00 Pure hypercholesterolemia, unspecified
CPT/HCPCS: 43235; 36416; 82962; 85610; A4216; J2405

== ENCOUNTER → 2025-03-15 | Outpatient (CLI) | payer BC, MEDICARE, SELFPAY ==
[2025-03-15 18:54] LABS: Prothrombin Time (Protime)PT. 29.3 SECONDS (11.7-14.9)
[2025-03-15 19:22] LABS: AST(SGOT) 22 U/L (<=31); Alanine Aminotransfer ALT/SGPT 29 U/L (<=34); Albumin, Serum 4.5 g/dL (3.4-4.8); Alkaline Phosphatase 74 U/L (35-104); Anion Gap 19 (5-15); BUN 15 mg/dL (4-19); BUN/Creat Ratio 19.4 RATIO (10-20); Calcium,Total 9.8 mg/dL (7.6-11.0); Carbon Dioxide 22.5 mmol/L (21.0-32.0); Chloride 98 mmol/L (98-108); Cholesterol 165 mg/dL (<=200); Free T3 2.9 pg/mL (2.18-3.98); Globulin 3.0 g/dL (2.2-4.2); Glucose 104 mg/dL (70-99); Low Density Lipoprotein Calc. 88 mg/dL; Potassium 3.6 mmol/L (3.3-5.1); Triglycerides 151 mg/dL; Very Low Density Lipoprotein 30 mg/dL (5-40); cholesterol:hdl ratio screen 3.56
== END | disposition home or self-care (01) ==
LOC: MFPLAB 14:32
PROVIDERS: Internal Medicine Cardiovascular Disease; PCP Family Medicine; Visit Provider Family Medicine
DX: E11.9 Type 2 diabetes mellitus without complications (principal); I48.11 Longstanding persistent atrial fibrillation; E03.9 Hypothyroidism, unspecified; Z79.01 Long term (current) use of anticoagulants
CPT/HCPCS: 36415; 80053; 80061; 84439; 84443; 84481; 85610

== ENCOUNTER 2025-06-16 09:32 | Outpatient (CLI) | payer MEDICARE, SELFPAY ==
[2025-06-16 10:39] LABS: Prothrombin Time (Protime)PT. 28.9 SECONDS (11.7-14.9)
[2025-06-16 13:06] LABS: AST(SGOT) 22 U/L (<=31); Alanine Aminotransfer ALT/SGPT 25 U/L (<=34); Albumin, Serum 4.4 g/dL (3.4-4.8); Alkaline Phosphatase 60 U/L (35-104); Anion Gap 13 (5-15); BUN 15 mg/dL (4-19); BUN/Creat Ratio 20.0 RATIO (10-20); Calcium,Total 9.4 mg/dL (7.6-11.0); Carbon Dioxide 26.5 mmol/L (21.0-32.0); Chloride 103 mmol/L (98-108); Cholesterol 152 mg/dL (<=200); Free T3 3.1 pg/mL (2.18-3.98); Globulin 2.7 g/dL (2.2-4.2); Glucose 125 mg/dL (70-99); Low Density Lipoprotein Calc. 87 mg/dL; Potassium 3.9 mmol/L (3.3-5.1); Triglycerides 150 mg/dL; Very Low Density Lipoprotein 30 mg/dL (5-40); cholesterol:hdl ratio screen 3.98
== END 2025-06-16 23:59 | disposition home or self-care (01) ==
LOC: MFPLAB 09:32
PROVIDERS: PCP Family Medicine; Visit Provider Family Medicine
DX: E11.9 Type 2 diabetes mellitus without complications (principal); I48.11 Longstanding persistent atrial fibrillation; E03.9 Hypothyroidism, unspecified; Z79.01 Long term (current) use of anticoagulants
CPT/HCPCS: 36415; 80053; 80061; 83036; 84439; 84443; 84481; 85610

== ENCOUNTER 2025-07-24 10:16 | Outpatient (RCR) | payer MEDICARE, BC, SELFPAY ==
[2025-07-24 11:26] LABS: Prothrombin Time (Protime)PT. 30.4 SECONDS (11.7-14.9)
== END 2025-07-24 18:00 | disposition home or self-care (01) ==
LOC: LAB 10:16
PROVIDERS: PCP Family Medicine; Referring Provider Internal Medicine Cardiovascular Disease; Visit Provider Internal Medicine Cardiovascular Disease
DX: I48.11 Longstanding persistent atrial fibrillation (principal); Z79.01 Long term (current) use of anticoagulants
CPT/HCPCS: 36415; 85610